=== PATIENT | female | born 1935 | race Caucasian/White ===

== ENCOUNTER 2017-12-06 17:08 | Inpatient (IN) | payer MEDICARE ==
[~2017-12-06] VITALS: Ht 147.3 cm; Wt 69.9 kg
--- NOTE | ~2017-12-06 | CON ---
[place], [place] REPORT OF CONSULTATION NAME: JAGDEEP HOUGH [facility] #: [id number] UNIT #: [id number] ROOM: 419 DOCTOR: VERONIKA BRIONES MD BIRTHDATE: [birth year] DOS: 12/07/2017 REASON FOR CONSULTATION: Chest pain. HISTORY OF PRESENT ILLNESS: The patient is an 82-year-old woman who denies any previous history of heart disease. She does have risk factors of hypertension, hyperlipidemia and previous cigarette use. She is very sedentary and rarely leaves her home. For the last day and a half, she has noticed that she has pain in her left anterior chest. She states that it occurs anytime she takes a deep breath. She denies cough or dyspnea, but the pain has been persistent. She denies any previous injuries. When the pain persisted, she came to the Emergency Room. Her electrocardiograms show evidence for previous inferior and anterior myocardial infarctions, even though she has no history of this. She has no acute ST or T-wave changes. Serial cardiac troponin levels have been negative despite the fact that she has had pain over 36 hours. PAST MEDICAL HISTORY: Includes: 1. Essential hypertension. 2. Hyperlipidemia. 3. History of former cigarette abuse. 4. Gastroesophageal reflux disease with persistent burping. 5. Status post appendectomy, back surgery and total knee replacement on the right. REVIEW OF SYSTEMS: The patient denies diplopia or loss of vision. She denies focal weakness. She denies lightheadedness or syncope. She denies orthopnea or PND. She denies fevers, chills, sweats or recent weight change. She denies nausea or vomiting. She denies change in bowel or bladder habits. She denies any blood in her stools or urine. She denies any hemoptysis or hematemesis. She denies any skin rashes. She states that her legs are chronically swollen and denies any new pains in her legs. She denies any skin rashes. Remainder of the review of systems is negative except as noted above. FAMILY HISTORY: The patient's mother of a heart attack at age 71. Her father of lung disease at age 80. CURRENT MEDICATIONS: Include: Atorvastatin 20 mg daily, Cymbalta 60 mg daily, gabapentin 300 mg b.i.d., losartan 100 mg per day, omeprazole 20 mg per day, and tramadol 50 mg b.i.d. ALLERGIES: She lists allergies to MORPHINE and CODEINE. SOCIAL HISTORY: The patient lives alone. She does not leave her house except to get the mail. She is very sedentary within her home. PHYSICAL EXAMINATION: GENERAL: The patient is an elderly white female who is awake, alert and oriented. VITAL SIGNS: Pulse is 60 and regular, blood pressure is 116/76. She is afebrile. She weighs 69.8 kg and has a body mass index of 32.2. [place], [place] REPORT OF CONSULTATION NAME: JAGDEEP HOUGH UNIT #: [id number] ROOM: 419 DOCTOR: VERONIKA BRIONES MD BIRTHDATE: [birth year] HEENT: Normocephalic and atraumatic. Extraocular muscles are intact. Sclerae are clear. Pupils equal, round and react to light. The oral mucosa is moist. Tongue is midline. NECK: Supple. She has no jugular distention. Carotids are full. I heard no bruits. She had no neck or supraclavicular masses and no thyromegaly. LUNGS: Respirations are unlabored. Her chest is clear to auscultation and percussion. She has no presacral edema. Her left anterior chest is tender to palpation, but this does not completely reproduce her symptoms. She states that her chest hurts much more if she takes a deep breath. There are no rubs. CARDIOVASCULAR: Her heart has a regular rhythm with an S4 gallop, but no S3. She has grade 2/6 holosystolic murmur at the apex. There is no diastolic murmur. ABDOMEN: Soft and normally active without masses, organomegaly or bruits. EXTREMITIES: Showed 1+ laterally. She does have a palpable cord in her right calf. Her left calf is tender, but I do not feel any specific cords. She has no Homans sign. Peripheral pulses are palpable in the feet. LABORATORY DATA: I reviewed her electrocardiogram that shows sinus rhythm. There is evidence for previous inferior and anterior wall myocardial infarction, but no acute ST changes. Hemoglobin is 12.7, white count 6200, platelet count 166,000. D-dimer is elevated at 0.61. Chest x-ray showed a possible small infrahilar interstitial infiltrate on the right. However, a CAT scan without contrast showed no evidence for infiltration or consolidation. IMPRESSION: 1. Pleuritic chest pain. The patient has had symptoms for over 36 hours. Despite this, she has no elevation in troponin and no ST or T-wave changes. It seems unlikely therefore that this is an acute coronary syndrome. 2. History of hypertension. 3. History of hyperlipidemia. 4. Remote history of cigarette abuse. 5. Swollen legs with a tender cord in her right calf. The patient does have a history of a sedentary lifestyle. PLAN: When the patient's D-dimer was positive, I put her on a low-dose heparin protocol. This morning, her symptoms have improved, but are still present. We will be getting a venous ultrasound of the lower extremities to document whether or not she had a lower extremity DVT. We will also be getting a CT angiogram of the chest to determine if she has pulmonary emboli. Further recommendations will depend upon the results of these examinations. [facility]iology and I thank the hospitalist physicians for asking our advice regarding the patient's care. [place], [place] REPORT OF CONSULTATION NAME: JAGDEEP HOUGH UNIT #: [id number] ROOM: 419 DOCTOR: VERONIKA BRIONES MD BIRTHDATE: [birth year] VERONIKA BRIONES MD CM:CONSTR:REPORT OF CONSULTATION [id number] 12/07/17 1856 interface
--- NOTE | ~2017-12-06 | PR ---
[place], [place] PROGRESS NOTE NAME: JAGDEEP HOUGH [facility] #: [id number] UNIT #: [id number] ROOM: 419 DOCTOR: VERONIKA BRIONES MD BIRTHDATE: [birth year] DOS: 12/08/2017 CARDIOLOGY PROGRESS NOTE SUBJECTIVE: The patient was seen today, 12/08/2017 at her bedside with her sister in attendance. She is feeling better and anxious for discharge. She still does have some pain in her left anterior chest, which hurts more when she takes a deep breath or when she palpates the area. Her cardiac evaluation has been unremarkable and the CT angiogram of her chest showed no evidence for pulmonary emboli. In addition, she did have a venous ultrasound of her legs, which showed no DVT. PHYSICAL EXAMINATION: VITAL SIGNS: Today, her pulse is 64 and regular, blood pressure is 150/80. She is afebrile and weighs 69.8 kilograms with a body mass index of 32.2. HEENT: Normocephalic, atraumatic. Extraocular muscles are intact. Sclerae are clear. Pupils are equal, round and react to light. NECK: Supple. She has no jugular distention. Carotids are full. LUNGS: Respirations are unlabored. Her chest is clear. She does have pain when she takes a deep breath. She has no wheezes or rales and no presacral edema. Palpation of her left anterior chest reproduces her pain. ABDOMEN: Soft and normally active. HEART: Has a regular rhythm with an S4 gallop, but no S3 or murmur and no rub. EXTREMITIES: Showed 1+ edema bilaterally. DIAGNOSTIC DATA: An echocardiogram done yesterday showed normal left ventricular size, wall thickness, regional wall motion and systolic function with stage 1 diastolic dysfunction that is normal in this age group. She had aortic sclerosis, but no stenosis or other valve abnormalities. IMPRESSION: 1. Pleuritic chest pain with no evidence for an acute coronary syndrome. She is tender to palpation with reproducible symptoms and therefore it is most likely that this is a musculoskeletal injury. 2. History of hypertension. 3. History of hyperlipidemia. 4. Remote history of cigarette abuse. 5. Chronic dependent edema. PLAN: No other cardiac workup is planned at this time. Symptomatic therapy is all that is indicated from our perspective along with routine risk factor modification. Cardiology will sign off, but we will remain available to see her in the future if needed and we thank the hospitalist physicians for asking our advice regarding her care. [place], [place] PROGRESS NOTE NAME: JAGDEEP HOUGH UNIT #: [id number] ROOM: 419 DOCTOR: VERONIKA BRIONES MD BIRTHDATE: [birth year] VERONIKA BRIONES MD CM:PNTRANS [id number] VERONIKA BRIONES MD 12/08/17 1534 interface
[~2017-12-06 17:08] MED LIST: COZAAR100 MG PO; LIPITOR20 MG PO; NEURONTIN300 MG PO; TRAMADOL50 MG PO
[2017-12-06 17:19] VITALS: BP 111/77
[2017-12-06 17:41] LABS: BASO # 0.1 10*3/uL (0.0-0.1); BASO % 0.7 % (0.0-1.0); EOS # 0.2 10*3/uL (0.0-0.4); EOS % 3.1 % (1.0-4.0); HEMATOCRIT 40.2 % (37.0-47.0); HEMOGLOBIN 13.1 g/dl (12.0-16.0); LYMPH # 2.7 10*3/uL (1.3-4.4); MEAN CELL VOLUME 93.7 fl (81.0-99.0); MEAN CORPUSCULAR HGB 30.5 pg (27.0-31.0); MEAN CORPUSCULAR HGB CONC 32.6 g/dl (33.0-37.0); MEAN PLATELET VOLUME 9.7 fl (9.6-12.3); MONO # 0.6 10*3/uL (0.1-1.0); MONO % 8.1 % (3.0-9.0); NEUT # 3.3 10*3/uL (2.3-7.9); PLATELET COUNT AUTOMATED 197 10*3/uL (130-400); RED BLOOD COUNT 4.29 10*6/uL (4.10-5.10); RED CELL DISTRI WIDTH 14.4 % (0-14.5); WHITE BLOOD COUNT 6.8 10*3/uL (4.8-10.8)
[2017-12-06 17:45] VITALS: BP 110/73
[2017-12-06 18:02] LABS: ALBUMIN 3.7 gm/dl (3.1-4.5); ALKALINE PHOSPHATASE 60 U/L (45-117); BUN 24 mg/dl (7-24); CHLORIDE 107 mmol/L (98-107); CREATININE 1.24 mg/dL (0.55-1.02); POTASSIUM 4.2 mmol/L (3.5-5.1); SGOT/AST 23 IU/L (3-35); SGPT/ALT 20 U/L (12-78); SODIUM 141 mmol/L (136-145); TOTAL PROTEIN 6.9 gm/dL (6.4-8.2)
[2017-12-06 18:07] LABS: TROPONIN I < 0.015 ng/ml (<0.045)
[2017-12-06 18:08] LABS: ACT PARTIAL THROMBO TIME 28.3 SECONDS (20.8-31.5)
[2017-12-06 18:35] VITALS: BP 104/64
[2017-12-06 19:28] VITALS: BP 110/68
[2017-12-06 20:00] VITALS: BP 150/59
[2017-12-06 20:25] VITALS: BP 150/59
[2017-12-06] MEDS ORDERED: OMEPRAZOLE20 M2 PO (20:54)
[2017-12-06] MEDS ORDERED: CYMBALTA60 MG PO (20:57)
[2017-12-07 00:12] VITALS: BP 116/76
[2017-12-07 08:00] VITALS: BP 132/59
[2017-12-07 08:24] LABS: BASO # 0.1 10*3/uL (0.0-0.1); BASO % 0.8 % (0.0-1.0); EOS # 0.2 10*3/uL (0.0-0.4); EOS % 3.7 % (1.0-4.0); HEMATOCRIT 40.4 % (37.0-47.0); HEMOGLOBIN 12.7 g/dl (12.0-16.0); LYMPH # 2.5 10*3/uL (1.3-4.4); LYMPH % 39.8 % (27.0-41.0); MEAN CORPUSCULAR HGB 30.2 pg (27.0-31.0); MEAN CORPUSCULAR HGB CONC 31.4 g/dl (33.0-37.0); MEAN PLATELET VOLUME 10.2 fl (9.6-12.3); MONO # 0.5 10*3/uL (0.1-1.0); MONO % 7.6 % (3.0-9.0); NEUT % 47.9 % (47.0-73.0); PLATELET COUNT AUTOMATED 166 10*3/uL (130-400); RED BLOOD COUNT 4.21 10*6/uL (4.10-5.10); RED CELL DISTRI WIDTH 14.5 % (0-14.5); WHITE BLOOD COUNT 6.2 10*3/uL (4.8-10.8)
[2017-12-07 08:38] LABS: CREATININE 1.12 mg/dL (0.55-1.02); FREE T4 1.05 ng/dl (0.76-1.46); PHOSPHOROUS 3.8 mg/dL (2.5-4.9); POTASSIUM 3.7 mmol/L (3.5-5.1)
[2017-12-07 08:44] LABS: THYROID STIM HORMONE (HS) 4.09 uIU/ml (0.358-4.75)
[2017-12-07 10:07] LABS: VITAMIN D, 25-HYDROXY 27.6 ng/mL (30-100)
[2017-12-07 12:00] VITALS: BP 155/59
[2017-12-07 16:04] VITALS: BP 122/89
[2017-12-07 20:00] VITALS: BP 144/62
[2017-12-08] VITALS: BP 145/60
[2017-12-08 07:08] LABS: BUN 24 mg/dl (7-24); CHLORIDE 105 mmol/L (98-107); CREATININE 1.03 mg/dL (0.55-1.02); SODIUM 137 mmol/L (136-145)
[2017-12-08 08:00] VITALS: BP 151/62
[2017-12-08] MEDS ORDERED: VITAMIN D-32000 UNIT PO (11:02)
[2017-12-08 12:00] VITALS: BP 150/80
== END 2017-12-08 13:54 | disposition home health service (06) | DRG 194 ==
LOC: ED 17:08 → EDHOLD 18:12 → 4E 18:12
PROVIDERS: Emergency Medicine; Internal Medicine; Internal Medicine Cardiovascular Disease
DX: R09.1 Pleurisy (principal); E44.0 Moderate protein-calorie malnutrition; F03.90 Unspecified dementia, unspecified severity, without behavioral disturbance, psychotic disturbance, mood disturbance, and anxiety; N18.3 Chronic kidney disease, stage 3 (moderate); E83.41 Hypermagnesemia; I12.9 Hypertensive chronic kidney disease with stage 1 through stage 4 chronic kidney disease, or unspecified chronic kidney disease; E78.2 Mixed hyperlipidemia; K21.9 Gastro-esophageal reflux disease without esophagitis; Z96.659 Presence of unspecified artificial knee joint; Z60.2 Problems related to living alone; K44.9 Diaphragmatic hernia without obstruction or gangrene; K80.20 Calculus of gallbladder without cholecystitis without obstruction; Z87.891 Personal history of nicotine dependence; Z82.49 Family history of ischemic heart disease and other diseases of the circulatory system; Z88.6 Allergy status to analgesic agent; Z79.899 Other long term (current) drug therapy; Z90.89 Acquired absence of other organs; Z90.710 Acquired absence of both cervix and uterus; Z90.49 Acquired absence of other specified parts of digestive tract; Z83.3 Family history of diabetes mellitus; Z83.6 Family history of other diseases of the respiratory system; Z68.32 Body mass index [BMI] 32.0-32.9, adult

== ENCOUNTER 2018-04-05 12:33 | Inpatient (IN) | payer MEDICARE ==
[~2018-04-05] VITALS: Ht 147.3 cm; Wt 63.2 kg
[2018-04-05] VITALS (8 sets, daily range): BP systolic 120–220; BP diastolic 65–112
--- NOTE | ~2018-04-05 | EKG ---
[place], [place] ELECTROCARDIOGRAM REPORT NAME: JAGDEEP HOUGH UNIT #: [id number] ROOM: 507 DOCTOR: LISANDRO DRAFT REPORT BIRTHDATE: [birth year] [facility] Test Date: 2018-04-05 Test Time: 22:08:57 Pat Name: JAGDEEP HOUGH Department: Room: [facility] 2 Gender: F Television News Anchor: CASSIA : 1935 Requested By: TONA WILKS Order Number: [id number] Reading MD: Chris Yusuf MD Measurements Intervals [place] Rate: 90 P: 21 NC: 157 QRS: -35 QRSD: 72 T: -8 QT: 360 QTc: 441 Interpretive Statements Sinus rhythm Atrial premature complex Left axis deviation Probable anteroseptal infarct, old Borderline T abnormalities, inferior leads N Electronically Signed On 04-09-2018 8:40:59 PDT by Chris Yusuf MD CM:EKGRPT:ELECTROCARDIOGRAM REPORT 07 [id number] TONA WHYTE DRAFT REPORT OTNA WILKS DO
--- NOTE | ~2018-04-05 | EKG ---
[place], [place] ELECTROCARDIOGRAM REPORT NAME: JAGDEEP HOUGH UNIT #: [id number] ROOM: 507 DOCTOR: LISANDRO DRAFT REPORT BIRTHDATE: [birth year] [facility] Test Date: 2018-04-06 Test Time: 01:04:09 Pat Name: JAGDEEP HOUGH Department: Room: [facility] 2 Gender: F Signal Operator: : 1935 Requested By: TONA WILKS Order Number: [id number] Reading MD: Jaskaran Ayoub MD Measurements Intervals [place] Rate: 90 P: 30 PA: 157 QRS: -34 QRSD: 73 T: 10 QT: 375 QTc: 459 Interpretive Statements Sinus rhythm Atrial premature complex Left axis deviation Anterior infarct, old Inferior infarct, old No old tracing for comparison Electronically Signed On 04-06-2018 10:53:03 PDT by Jaskaran Ayoub MD CM:EKGRPT:ELECTROCARDIOGRAM REPORT [id number] 1053 TONA WHYTE DRAFT REPORT TONA WILKS DO
--- NOTE | ~2018-04-05 | EKG ---
[place], [place] ELECTROCARDIOGRAM REPORT NAME: JAGDEEP HOUGH UNIT #: [id number] ROOM: 507 DOCTOR: LISANDRO DRAFT REPORT BIRTHDATE: [birth year] [facility] Test Date: 2018-04-05 Test Time: 12:52:29 Pat Name: JAGDEEP HOUGH Department: Room: 507 Gender: F Database Administration Manager: Molly Hurst : 1935 Requested By: NATALIA MERINO Order Number: [id number] Reading MD: Chris Yusuf MD Measurements Intervals [place] Rate: 103 P: 62 DE: 153 QRS: -22 QRSD: 76 T: 27 QT: 346 QTc: 453 Interpretive Statements Sinus tachycardia Probable left atrial enlargement Borderline left axis deviation Anterior infarct, old Electronically Signed On 04-09-2018 8:38:44 PDT by Chris Yusuf MD CM:EKGRPT:ELECTROCARDIOGRAM REPORT [id number] NATALIA MCMAHON DRAFT REPORT NATALIA MERINO M.D.
[~2018-04-05 12:33] MED LIST changes: +CYMBALTA60 MG PO; +NORCO 5-325 TA1 EACH PO; +OMEPRAZOLE20 M2 PO; +VITAMIN D-32000 UNIT PO
[2018-04-05] MEDS ORDERED: TRAMADOL HCL50 MG PO (12:39)
[2018-04-05 14:13] LABS: BASO % 0.4 % (0.0-1.0); HEMATOCRIT 41.8 % (37.0-47.0); HEMOGLOBIN 14.3 g/dl (12.0-16.0); LYMPH # 1.1 10*3/uL (1.3-4.4); MEAN CELL VOLUME 93.3 fl (81.0-99.0); MEAN CORPUSCULAR HGB 31.9 pg (27.0-31.0); MEAN CORPUSCULAR HGB CONC 34.2 g/dl (33.0-37.0); MEAN PLATELET VOLUME 9.5 fl (9.6-12.3); MONO # 0.6 10*3/uL (0.1-1.0); MONO % 7.7 % (3.0-9.0); NEUT # 6.3 10*3/uL (2.3-7.9); NEUT % 77.4 % (47.0-73.0); PLATELET COUNT AUTOMATED 225 10*3/uL (130-400); RED BLOOD COUNT 4.48 10*6/uL (4.10-5.10); RED CELL DISTRI WIDTH 14.4 % (0-14.5); WHITE BLOOD COUNT 8.1 10*3/uL (4.8-10.8)
[2018-04-05 14:32] LABS: ALBUMIN 3.7 gm/dl (3.1-4.5); CREATININE 1.21 mg/dL (0.55-1.02); POTASSIUM 3.9 mmol/L (3.5-5.1); TOTAL PROTEIN 6.8 gm/dL (6.4-8.2)
[2018-04-05 14:33] LABS: ACT PARTIAL THROMBO TIME 25.1 SECONDS (20.8-31.5); TROPONIN I 0.029 ng/ml (<0.045)
[2018-04-05 14:50] LABS: BILIRUBIN 2+ (NEGATIVE); BLOOD NEGATIVE (NEGATIVE); CLARITY SL CLOUDY (CLEAR); COLOR YELLOW (YELLOW); GLUCOSE TRACE (NEGATIVE); KETONE 1+ (NEGATIVE); LEUKO ESTERASE NEGATIVE (NEGATIVE); NITRITE NEGATIVE (NEGATIVE); SPECIFIC GRAVITY >= 1.030 (1.005-1.030)
[2018-04-05 14:56] LABS: BACTERIA 1+; HYALINE CAST 41-50; MUCOUS 1+
[2018-04-05 16:44] LABS: ALBUMIN 3.4 gm/dl (3.1-4.5); ALKALINE PHOSPHATASE 58 U/L (45-117); BUN 15 mg/dl (7-24); CHLORIDE 109 mmol/L (98-107); CREATININE 0.96 mg/dL (0.55-1.02); SGOT/AST 20 IU/L (3-35); SGPT/ALT 14 U/L (12-78); SODIUM 144 mmol/L (136-145); TOTAL PROTEIN 6.3 gm/dL (6.4-8.2)
[2018-04-05] MEDS ORDERED: COZAAR25 M1 PO (21:13)
[2018-04-05] MEDS ORDERED: DONEPEZIL HCL10 MG PO (21:14)
[2018-04-06] VITALS: BP 156/84
[2018-04-06 04:00] VITALS: BP 142/78
[2018-04-06 06:46] LABS: ALBUMIN 3.4 gm/dl (3.1-4.5); ALKALINE PHOSPHATASE 56 U/L (45-117); BUN 15 mg/dl (7-24); CHLORIDE 109 mmol/L (98-107); CHOLESTEROL 155 mg/dL (<200); CREATININE 0.92 mg/dL (0.55-1.02); HDL CHOLESTEROL 74 mg/dl (40-60); LDL CHOLESTEROL 67 mg/dL (9-159); PHOSPHOROUS 3.4 mg/dL (2.5-4.9); POTASSIUM 3.7 mmol/L (3.5-5.1); SGOT/AST 20 IU/L (3-35); SGPT/ALT 14 U/L (12-78); SODIUM 141 mmol/L (136-145); TOTAL PROTEIN 6.1 gm/dL (6.4-8.2); TRIGLYCERIDES 69 mg/dl (<150); VLDL CHOLESTEROL 14 mg/dL (6-40)
[2018-04-06 06:48] LABS: BASO % 0.2 % (0.0-1.0); HEMATOCRIT 37.9 % (37.0-47.0); HEMOGLOBIN 12.9 g/dl (12.0-16.0); LYMPH # 0.8 10*3/uL (1.3-4.4); LYMPH % 13.5 % (27.0-41.0); MEAN CELL VOLUME 93.1 fl (81.0-99.0); MEAN CORPUSCULAR HGB 31.7 pg (27.0-31.0); MEAN PLATELET VOLUME 9.7 fl (9.6-12.3); MONO # 0.1 10*3/uL (0.1-1.0); MONO % 1.4 % (3.0-9.0); NEUT # 4.7 10*3/uL (2.3-7.9); NEUT % 84.5 % (47.0-73.0); PLATELET COUNT AUTOMATED 199 10*3/uL (130-400); RED BLOOD COUNT 4.07 10*6/uL (4.10-5.10); RED CELL DISTRI WIDTH 14.6 % (0-14.5); WHITE BLOOD COUNT 5.6 10*3/uL (4.8-10.8)
[2018-04-06 06:53] LABS: THYROID STIM HORMONE (HS) 0.759 uIU/ml (0.358-4.75)
[2018-04-06 07:46] LABS: VITAMIN D, 25-HYDROXY 37.6 ng/mL (30-100)
[2018-04-06 08:00] VITALS: BP 152/84
[2018-04-06 12:00] VITALS: BP 133/91
[2018-04-06 16:00] VITALS: BP 152/85
[2018-04-06 20:00] VITALS: BP 127/61
[2018-04-07] VITALS: BP 123/66
[2018-04-07 08:00] VITALS: BP 139/53
[2018-04-07 12:00] VITALS: BP 124/51
[2018-04-07 16:00] VITALS: BP 131/55
[2018-04-07 20:00] VITALS: BP 151/55
[2018-04-08] VITALS: BP 137/56
[2018-04-08 07:54] LABS: BASO % 0.1 % (0.0-1.0); HEMATOCRIT 35.9 % (37.0-47.0); HEMOGLOBIN 11.9 g/dl (12.0-16.0); LYMPH % 10.1 % (27.0-41.0); MEAN CELL VOLUME 96.2 fl (81.0-99.0); MEAN CORPUSCULAR HGB 31.9 pg (27.0-31.0); MEAN CORPUSCULAR HGB CONC 33.1 g/dl (33.0-37.0); MEAN PLATELET VOLUME 10.1 fl (9.6-12.3); MONO # 0.5 10*3/uL (0.1-1.0); MONO % 5.1 % (3.0-9.0); NEUT # 8.6 10*3/uL (2.3-7.9); NEUT % 83.9 % (47.0-73.0); PLATELET COUNT AUTOMATED 173 10*3/uL (130-400); RED BLOOD COUNT 3.73 10*6/uL (4.10-5.10); RED CELL DISTRI WIDTH 15.1 % (0-14.5); WHITE BLOOD COUNT 10.2 10*3/uL (4.8-10.8)
[2018-04-08 08:00] VITALS: BP 154/66
[2018-04-08 08:08] LABS: BUN 24 mg/dl (7-24); CHLORIDE 109 mmol/L (98-107); CREATININE 1.01 mg/dL (0.55-1.02); POTASSIUM 3.8 mmol/L (3.5-5.1); SODIUM 143 mmol/L (136-145)
[2018-04-08 12:00] VITALS: BP 134/82
[2018-04-08 16:00] VITALS: BP 104/60
[2018-04-08 20:00] VITALS: BP 133/52
[2018-04-09] VITALS: BP 153/68
[2018-04-09 06:34] LABS: HEMATOCRIT 34.1 % (37.0-47.0); HEMOGLOBIN 11.2 g/dl (12.0-16.0); LYMPH # 0.5 10*3/uL (1.3-4.4); LYMPH % 6.8 % (27.0-41.0); MEAN CELL VOLUME 97.2 fl (81.0-99.0); MEAN CORPUSCULAR HGB 31.9 pg (27.0-31.0); MEAN CORPUSCULAR HGB CONC 32.8 g/dl (33.0-37.0); MEAN PLATELET VOLUME 10.6 fl (9.6-12.3); MONO # 0.4 10*3/uL (0.1-1.0); MONO % 4.6 % (3.0-9.0); NEUT # 6.6 10*3/uL (2.3-7.9); NEUT % 87.7 % (47.0-73.0); NUCLEATED RED BLOOD CELL 0.3 % (0.0-0.0); PLATELET COUNT AUTOMATED 160 10*3/uL (130-400); RED BLOOD COUNT 3.51 10*6/uL (4.10-5.10); RED CELL DISTRI WIDTH 15.2 % (0-14.5); WHITE BLOOD COUNT 7.6 10*3/uL (4.8-10.8)
[2018-04-09 07:12] LABS: ALBUMIN 3.1 gm/dl (3.1-4.5); ALKALINE PHOSPHATASE 68 U/L (45-117); BUN 28 mg/dl (7-24); CHLORIDE 108 mmol/L (98-107); CREATININE 1.04 mg/dL (0.55-1.02); POTASSIUM 3.8 mmol/L (3.5-5.1); SGOT/AST 19 IU/L (3-35); SGPT/ALT 18 U/L (12-78); SODIUM 141 mmol/L (136-145); TOTAL PROTEIN 5.5 gm/dL (6.4-8.2)
[2018-04-09 08:00] VITALS: BP 164/82
[2018-04-09 12:00] VITALS: BP 146/67
[2018-04-09] MEDS ORDERED: ZITHROMAX250 MG PO (14:36)
[2018-04-09] MEDS ORDERED: PREDNISONE10 MG PO (14:36)
== END 2018-04-09 17:34 | disposition other institution (70) | DRG 871 ==
LOC: ED 12:33 → 5E 18:30 → EDHOLD 18:30 → 5E 18:51
PROVIDERS: Internal Medicine; Nurse Practitioner; Student in an Organized Health Care Education/Training Program
DX: A41.9 Sepsis, unspecified organism (principal); J18.9 Pneumonia, unspecified organism; E44.1 Mild protein-calorie malnutrition; I16.1 Hypertensive emergency; N18.3 Chronic kidney disease, stage 3 (moderate); R65.20 Severe sepsis without septic shock; I12.9 Hypertensive chronic kidney disease with stage 1 through stage 4 chronic kidney disease, or unspecified chronic kidney disease; E78.2 Mixed hyperlipidemia; K21.9 Gastro-esophageal reflux disease without esophagitis; K29.50 Unspecified chronic gastritis without bleeding; F03.90 Unspecified dementia, unspecified severity, without behavioral disturbance, psychotic disturbance, mood disturbance, and anxiety; R29.6 Repeated falls; Z96.659 Presence of unspecified artificial knee joint; E55.9 Vitamin D deficiency, unspecified; Z88.6 Allergy status to analgesic agent; Z79.899 Other long term (current) drug therapy; Z90.89 Acquired absence of other organs; Z90.49 Acquired absence of other specified parts of digestive tract; S62.102D Fracture of unspecified carpal bone, left wrist, subsequent encounter for fracture with routine healing; Z90.710 Acquired absence of both cervix and uterus; Z82.49 Family history of ischemic heart disease and other diseases of the circulatory system; Z83.3 Family history of diabetes mellitus; Z87.891 Personal history of nicotine dependence; Z83.6 Family history of other diseases of the respiratory system; Z68.29 Body mass index [BMI] 29.0-29.9, adult

== ENCOUNTER 2018-10-01 16:28 | Emergency (ER) | payer MEDICARE ==
[~2018-10-01] VITALS: Ht 147.3 cm; Wt 63.5 kg
[~2018-10-01 16:28] MED LIST changes: +COZAAR25 M1 PO; +DONEPEZIL HCL10 MG PO; +PREDNISONE10 MG PO; +TRAMADOL HCL50 MG PO; +ZITHROMAX250 MG PO
== END 2018-10-01 18:05 | disposition home or self-care (01) ==
LOC: ED 16:28
DX: R05 Cough (principal); R09.89 Other specified symptoms and signs involving the circulatory and respiratory systems; Z88.5 Allergy status to narcotic agent; Z79.899 Other long term (current) drug therapy; Z87.891 Personal history of nicotine dependence; Z90.710 Acquired absence of both cervix and uterus; Z90.49 Acquired absence of other specified parts of digestive tract

== ENCOUNTER 2019-05-10 20:12 | Emergency (ER) | payer MEDICARE ==
[~2019-05-10] VITALS: Ht 170.1 cm; Wt 76.7 kg
[2019-05-10 20:47] LABS: BASO # 0.1 10*3/uL (0.0-0.1); BASO % 0.6 % (0.0-1.0); EOS # 0.4 10*3/uL (0.0-0.4); EOS % 4.7 % (1.0-4.0); HEMATOCRIT 38.4 % (37.0-47.0); HEMOGLOBIN 12.2 g/dl (12.0-16.0); LYMPH # 2.1 10*3/uL (1.3-4.4); LYMPH % 25.9 % (27.0-41.0); MEAN CELL VOLUME 96.2 fl (81.0-99.0); MEAN CORPUSCULAR HGB 30.6 pg (27.0-31.0); MEAN CORPUSCULAR HGB CONC 31.8 g/dl (33.0-37.0); MEAN PLATELET VOLUME 9.6 fl (9.6-12.3); MONO # 0.6 10*3/uL (0.1-1.0); MONO % 7.7 % (3.0-9.0); NEUT % 60.4 % (47.0-73.0); PLATELET COUNT AUTOMATED 223 10*3/uL (130-400); RED BLOOD COUNT 3.99 10*6/uL (4.10-5.10); RED CELL DISTRI WIDTH 14.6 % (0-14.5); WHITE BLOOD COUNT 8.2 10*3/uL (4.8-10.8)
[2019-05-10 21:01] LABS: ALBUMIN 3.3 gm/dl (3.1-4.5); CREATININE 1.29 mg/dL (0.55-1.02); POTASSIUM 4.6 mmol/L (3.5-5.1); TOTAL PROTEIN 6.9 gm/dL (6.4-8.2)
[2019-05-10 21:19] LABS: BILIRUBIN NEGATIVE (NEGATIVE); BLOOD NEGATIVE (NEGATIVE); CLARITY SL CLOUDY (CLEAR); COLOR YELLOW (YELLOW); GLUCOSE NEGATIVE (NEGATIVE); KETONE NEGATIVE (NEGATIVE); LEUKO ESTERASE NEGATIVE (NEGATIVE); NITRITE NEGATIVE (NEGATIVE); SPECIFIC GRAVITY 1.025 (1.005-1.030); UROBILINOGEN 0.2 E.U./dl (0.2-1.0)
[2019-05-10 21:25] LABS: BACTERIA TRACE; HYALINE CAST 0-2; WBC 0-2 wbc/hpf (0-5)
== END 2019-05-10 23:40 ==
LOC: ED 20:12
PROVIDERS: Emergency Medicine Emergency Medical Services
DX: S80.812A Abrasion, left lower leg, initial encounter (principal); S80.811A Abrasion, right lower leg, initial encounter; R51 Headache; M54.2 Cervicalgia; I12.9 Hypertensive chronic kidney disease with stage 1 through stage 4 chronic kidney disease, or unspecified chronic kidney disease; N18.3 Chronic kidney disease, stage 3 (moderate); K21.9 Gastro-esophageal reflux disease without esophagitis; E78.2 Mixed hyperlipidemia; K44.9 Diaphragmatic hernia without obstruction or gangrene; R60.0 Localized edema; M19.90 Unspecified osteoarthritis, unspecified site; Z88.6 Allergy status to analgesic agent; Z91.040 Latex allergy status; Z87.891 Personal history of nicotine dependence; W19.XXXA Unspecified fall, initial encounter; Y93.89 Activity, other specified; Y92.531 Health care provider office as the place of occurrence of the external cause; Y99.8 Other external cause status

== ENCOUNTER 2019-05-26 14:22 | Emergency (ER) | payer MEDICARE ==
[~2019-05-26] VITALS: Ht 160 cm; Wt 63.5 kg
[2019-05-26 16:07] LABS: BASO % 0.5 % (0.0-1.0); EOS # 0.2 10*3/uL (0.0-0.4); EOS % 3.1 % (1.0-4.0); HEMATOCRIT 34.7 % (37.0-47.0); HEMOGLOBIN 10.8 g/dl (12.0-16.0); LYMPH # 1.2 10*3/uL (1.3-4.4); LYMPH % 20.1 % (27.0-41.0); MEAN CELL VOLUME 96.9 fl (81.0-99.0); MEAN CORPUSCULAR HGB 30.2 pg (27.0-31.0); MEAN CORPUSCULAR HGB CONC 31.1 g/dl (33.0-37.0); MEAN PLATELET VOLUME 9.2 fl (9.6-12.3); MONO # 0.7 10*3/uL (0.1-1.0); MONO % 11.4 % (3.0-9.0); NEUT # 3.7 10*3/uL (2.3-7.9); NEUT % 64.4 % (47.0-73.0); PLATELET COUNT AUTOMATED 232 10*3/uL (130-400); RED BLOOD COUNT 3.58 10*6/uL (4.10-5.10); RED CELL DISTRI WIDTH 15.1 % (0-14.5); WHITE BLOOD COUNT 5.7 10*3/uL (4.8-10.8)
[2019-05-26 16:18] LABS: INTERNATIONAL NORM RATIO 0.9 (2.0-3.5)
[2019-05-26 16:37] LABS: ALBUMIN 3.2 gm/dl (3.1-4.5); ALKALINE PHOSPHATASE 80 U/L (45-117); BUN 39 mg/dl (7-24); CHLORIDE 108 mmol/L (98-107); CREATININE 1.37 mg/dL (0.55-1.02); LIPASE 65 U/L (73-393); SGOT/AST 25 IU/L (3-35); SGPT/ALT 23 U/L (12-78); SODIUM 143 mmol/L (136-145); TOTAL PROTEIN 6.6 gm/dL (6.4-8.2)
[2019-05-26 16:38] LABS: TROPONIN I < 0.015 ng/ml (<0.045)
[2019-05-26 17:33] LABS: BILIRUBIN NEGATIVE (NEGATIVE); BLOOD NEGATIVE (NEGATIVE); CLARITY CLEAR (CLEAR); COLOR YELLOW (YELLOW); GLUCOSE NEGATIVE (NEGATIVE); KETONE NEGATIVE (NEGATIVE); LEUKO ESTERASE NEGATIVE (NEGATIVE); NITRITE NEGATIVE (NEGATIVE); UROBILINOGEN 0.2 E.U./dl (0.2-1.0)
[2019-05-26 17:52] LABS: BACTERIA TRACE
== END 2019-05-26 18:15 | disposition other institution (70) ==
LOC: ED 14:22
PROVIDERS: Nurse Practitioner Family
DX: S29.012A Strain of muscle and tendon of back wall of thorax, initial encounter (principal); S80.02XA Contusion of left knee, initial encounter; M25.552 Pain in left hip; L97.229 Non-pressure chronic ulcer of left calf with unspecified severity; I10 Essential (primary) hypertension; M19.90 Unspecified osteoarthritis, unspecified site; F03.90 Unspecified dementia, unspecified severity, without behavioral disturbance, psychotic disturbance, mood disturbance, and anxiety; Z88.6 Allergy status to analgesic agent; Z91.040 Latex allergy status; Z79.899 Other long term (current) drug therapy; Z87.891 Personal history of nicotine dependence; W18.39XA Other fall on same level, initial encounter; Y93.89 Activity, other specified; Y92.128 Other place in nursing home as the place of occurrence of the external cause; Y99.8 Other external cause status

== ENCOUNTER 2020-01-27 14:17 | Inpatient (IN) | payer MEDICARE ==
[~2020-01-27] VITALS: Ht 152.4 cm; Wt 69.4 kg
[2020-01-27 14:25] VITALS: BP 192/82
[2020-01-27 15:29] LABS: BASO % 0.4 % (0.0-1.0); EOS # 0.1 10*3/uL (0.0-0.4); HEMATOCRIT 42.4 % (37.0-47.0); LYMPH # 1.5 10*3/uL (1.3-4.4); LYMPH % 16.9 % (27.0-41.0); MEAN CELL VOLUME 92.8 fl (81.0-99.0); MEAN CORPUSCULAR HGB 30.2 pg (27.0-31.0); MEAN CORPUSCULAR HGB CONC 32.5 g/dl (33.0-37.0); MONO # 0.7 10*3/uL (0.1-1.0); MONO % 7.8 % (3.0-9.0); NEUT # 6.5 10*3/uL (2.3-7.9); NEUT % 73.3 % (47.0-73.0); PLATELET COUNT AUTOMATED 293 10*3/uL (130-400); RED BLOOD COUNT 4.57 10*6/uL (4.10-5.10); RED CELL DISTRI WIDTH 13.5 % (0-14.5); WHITE BLOOD COUNT 8.9 10*3/uL (4.8-10.8)
[2020-01-27 15:45] LABS: ACT PARTIAL THROMBO TIME 26.6 SECONDS (20.0-32.1); ALKALINE PHOSPHATASE 65 U/L (45-117); BUN 17 mg/dl (7-24); CHLORIDE 111 mmol/L (98-107); CREATININE 0.88 mg/dL (0.55-1.02); LIPASE 17 U/L (73-393); POTASSIUM 3.4 mmol/L (3.5-5.1); SGOT/AST 14 IU/L (3-35); SGPT/ALT 12 U/L (12-78); SODIUM 140 mmol/L (136-145); TOTAL PROTEIN 6.8 gm/dL (6.4-8.2)
--- NOTE | 2020-01-27 18:06 | NUR ---
THIS RN HAS BEEN UNSUCCESSFUL WITH EKG AND URINE SAMPLE. WAITING FOR ANOTHER STAFF MEMBER TO ASSIST.
[2020-01-27 19:03] LABS: BILIRUBIN NEGATIVE (NEGATIVE); CLARITY CLOUDY (CLEAR); COLOR YELLOW (YELLOW); GLUCOSE NEGATIVE (NEGATIVE); KETONE NEGATIVE (NEGATIVE)
[2020-01-27 19:04] LABS: BLOOD 3+ (NEGATIVE); LEUKO ESTERASE 3+ (NEGATIVE); NITRITE POSITIVE (NEGATIVE); PH 6.5 (5.0-9.0); SPECIFIC GRAVITY 1.025 (1.005-1.030); UROBILINOGEN 0.2 E.U./dl (0.2-1.0)
[2020-01-27 19:15] LABS: RBC TNTC rbc/hpf (0-2)
[2020-01-27 19:16] VITALS: BP 186/82
[2020-01-27 19:16] LABS: BACTERIA 4+; EPITHELIAL CELLS 21-30; WBC TNTC wbc/hpf (0-5)
[2020-01-27 20:00] VITALS: BP 180/90
--- NOTE | 2020-01-27 20:00 | NUR ---
Time: 1999 A 84 year old FEMALE admitted to 5E under services of SANDRA CORRALES DO. Pt. arrived via stretcher from ER. Chief complaint: CHANGE IN MENTAL STATUS. AMBER LLOYD
[2020-01-27] MEDS ORDERED: LOSARTAN POTASS50 M1 PO (20:29)
--- NOTE | 2020-01-27 20:34 | NUR ---
MED REC UP TO DATE PER PATIENT'S DAUGHTER TIM.
--- NOTE | 2020-01-27 20:43 | NUR ---
IN ROOM TO SEE PT. DAUGHTER AT BEDSIDE TO ANSWER QUESTIONS PT IS NONVERBAL. MADE AWARE OF BP 180/90 MANUALLY AND THAT PT HAS ALREADY HAD LOSARTAN TODAY. ALSO MADE AWARE OF NO BM SINCE ROUGHLY 12/27/2019. MADE AWARE OF WOUND TO L HEEL.
--- NOTE | 2020-01-27 21:27 | NUR ---
IV LABETOLOL GIVEN SLOWLY PER ONE TIME ORDER FOR ELEVATED BP. WILL MONITOR EFFECTIVENESS.
[2020-01-27 22:30] VITALS: BP 128/58
--- NOTE | 2020-01-27 22:30 | NUR ---
EARLIER LABETOLOL EFFECTIVE. BP NOW 128/58 MANUALLY.
[2020-01-28] VITALS: BP 121/52
--- NOTE | 2020-01-28 | NUR ---
PT ASLEEP IN BED. NO S/S OF DISTRESS NOTED. IVF INFUSING PER ORDER. WILL MONITOR. CALL LIGHT IN REACH. BED ALARM INTACT.
--- NOTE | 2020-01-28 03:46 | NUR ---
PATIENT BRIEF CHANGED AND PT REPOSITIONED ON L SIDE FOR COMFORT. BRIEF WAS DRY, BUT LARGER SIZE PROVIDED. RN IN ROOM TO SEE PATIENT. RN ASKS IF SHE IS OKAY. PT REPLIES "YES" AND NODS HEAD. RN ASKS IF PT NEEDS ANYTHING. PT REPLIES "NO." WILL MONITOR. CALL LIGHT IN REACH. BED ALARM INTACT.
--- NOTE | 2020-01-28 05:30 | NUR ---
CRYSTAL IN TO SEE PATIENT. NEW DRESSING APPLIED. PT REPOSITIONED ON R SIDE USING WEDGE. PILLOWS PLACED BETWEEN KNEES TO PREVENT FRICTION/SHEARING. HEEL PROTECTORS REMAIN IN USE. WILL MONITOR. BED LEFT LOCKED IN LOW POSITION, BED ALARM INTACT, CALL LIGHT IN REACH.
--- NOTE | 2020-01-28 06:15 | NUR ---
SPOKE TO PODIATRY RESIDENT REGARDING CONSULT. NEW ORDERS RECEIVED FOR XRAY L FOOT/ANKLE, VENOUS/ARTERIAL US BLE, ESR/CRP.
[2020-01-28 06:38] LABS: BASO # 0.1 10*3/uL (0.0-0.1); BASO % 0.7 % (0.0-1.0); EOS # 0.2 10*3/uL (0.0-0.4); EOS % 1.8 % (1.0-4.0); HEMATOCRIT 40.3 % (37.0-47.0); LYMPH # 1.4 10*3/uL (1.3-4.4); MEAN CELL VOLUME 93.5 fl (81.0-99.0); MEAN CORPUSCULAR HGB 30.2 pg (27.0-31.0); MEAN CORPUSCULAR HGB CONC 32.3 g/dl (33.0-37.0); MEAN PLATELET VOLUME 9.1 fl (9.6-12.3); MONO # 0.7 10*3/uL (0.1-1.0); NEUT % 74.8 % (47.0-73.0); PLATELET COUNT AUTOMATED 282 10*3/uL (130-400); RED BLOOD COUNT 4.31 10*6/uL (4.10-5.10); RED CELL DISTRI WIDTH 13.5 % (0-14.5); WHITE BLOOD COUNT 9.4 10*3/uL (4.8-10.8)
--- NOTE | 2020-01-28 06:38 | NUR ---
DAUGHTER TIM CALLED AND UPDATED ON PLAN OF CARE.
[2020-01-28 06:49] LABS: ALKALINE PHOSPHATASE 62 U/L (45-117); BUN 16 mg/dl (7-24); CHLORIDE 112 mmol/L (98-107); CREATININE 0.89 mg/dL (0.55-1.02); POTASSIUM 3.4 mmol/L (3.5-5.1); SGOT/AST 11 IU/L (3-35); SGPT/ALT 12 U/L (12-78); SODIUM 143 mmol/L (136-145); TOTAL PROTEIN 6.3 gm/dL (6.4-8.2)
--- NOTE | 2020-01-28 07:38 | NUR ---
PHYSICAL THERAPY Screen and PT orders received, will follow. Thank you. Agus Snowden SPT Deirdre Horta PT
--- NOTE | 2020-01-28 07:48 | NUR ---
Occupational therapy order and nursing screen received. Will follow up with patient for completion of an OT evaluation. Thank you. Deanne Byers, OTR/L
[2020-01-28 08:00] VITALS: BP 151/90
--- NOTE | 2020-01-28 08:20 | NUR ---
SPEECH PATHOLOGY Nursing screen completed. Reports indicate acute confusion. This dept. will be available for consult as needed. YANI ANN MSCCC-MILLSTONE CLEANER
--- NOTE | 2020-01-28 08:41 | NUR ---
OT NOTE Occupational therapy order received. Attempted to see patient this AM; however, patient was under podiatry care. Spoke with podiatry in regards to LLE foot ulcers. Per podiatry, therapy to be placed on hold until further testing is completed. Will follow up when appropriate for an OT evaluation. Thank you. Deanne Byers, OTR/L
[2020-01-28 08:48] LABS: VITAMIN D, 25-HYDROXY 28.1 ng/mL (30-100)
--- NOTE | 2020-01-28 08:49 | NUR ---
PHYSICAL THERAPY Chart reviewed, prior to evaluation spoke with Podiatry regarding pt's LLE/foot ulcer. Per Podiatry to defer therapy until tests for L foot/ankle come back due to possible NWB status. Will attempt at a later time/date. Thank you. Agus Snowden SPT Deirdre Horta PT
--- NOTE | 2020-01-28 09:00 | NUR ---
Wool Fleece Grader in to talk to patient. Patient states lives at home with daughter. There are no steps in the home. Physician: marjorie [facility]: [facility] Home health services: none at present Patient's level of ADLs: MAX ASSIST Patient has working utilities: all working DME: hospital bed, transportation chair Follow-up physician's appointment after d/c: will be made by hospitalist nurse director upon discharge Does patient want to access PORTAL?: no Discharge plan case management visits with patient, she is unable to carry on a conversation, contacted patient's daughter regarding discharge plans, daughter stated patient lives at home with her, daughter stated patient has a hospital bed and transporation chair and a cane. she also stated patient has not walked for awhile and requires assistance with her adls, daughter stated she would like patient to return home when discharged discussed with her VNA and educated her on the services they provide, she declined any home services at this time, also discussed with her if patient would need to discharge to a short term correction if she could choose one to send referral, she stated she really wanted her mom to return home but if she needed a snf she would choose [facility]. case management will follow for needs. COLLEEN JOSHI
[2020-01-28 12:00] VITALS: BP 155/68
--- NOTE | 2020-01-28 13:28 | NUR ---
PHYSICAL THERAPY Reviewed doppler study report in chart, RLE is positive for an acute DVT in the femoral vein. Will defer therapy at this time and await further MD assessment and clearance for activity. Malaika Horta PT
[2020-01-28 16:00] VITALS: BP 154/62
--- NOTE | 2020-01-28 18:25 | NUR ---
SPOKE WITH PATIENT'S DAUGHTER TIM WHO IS PATIENT'S POA BY PHONE RE: PODIATRY CONSULT PLANNING FOR I & D LEFT FOOT WITH BONE BIOPSY AND POSSIBLE WOUND VAC APPLICATION. SHE IS AGREEABLE TO TO THE PROCEDURE TOMORROW AND ASSISTED WITH THE PRE-OP QUESTIONAIRE. SHE WILL BE AVAILABLE TOMORROW FOR SURGERY STAFF TO CALL AND OBTAIN CONSENTS AND ANSWER QUESTIONS, PER TIM. SHE VOICED CONCERNS THAT PATIENT HAS NOT HAD A BM SINCE December DESPITE EATING ADEQUATE AMOUNTS OF FOOD. WILL NOTIFY RESIDENT.
--- NOTE | 2020-01-28 18:30 | NUR ---
PER DR. EASLEY, MILK OF MAGNESIA TO BE ADMINISTERED PRN MED FOR CONSTIPATION, AND IF NOT EFFECTIVE IN 3 HOURS, ADMINISTER THE DULCOLAX ORDERED PRN.
--- NOTE | 2020-01-28 18:34 | NUR ---
MEDICATED WITH PRN MILK OF MAGNESIA FOR CONSTIPATION.
[2020-01-28 20:00] VITALS: BP 178/100
[2020-01-28 22:15] VITALS: BP 210/94
--- NOTE | 2020-01-28 22:24 | NUR ---
NOTIFIED OF ELEVATED BP. DISCUSSED HOME MEDS AND PATIENT RESPONDING "YES" WHEN ASKED IF IN PAIN. NEW ORDERS TO FOLLOW.
--- NOTE | 2020-01-28 22:31 | NUR ---
1.25 MG IV METOPROLOL ADMINISTRED PER ONE TIME ORDER FOR ELEVATED BP 210/94. PO ULTRAM ALSO GIVEN FOR PAIN. WILL MONITOR.
[2020-01-29] VITALS (11 sets, daily range): BP systolic 126–188; BP diastolic 59–115
--- NOTE | 2020-01-29 | NUR ---
BP NOW 188/94. PT DOES NOT ANSWER WHEN ASKED IF IN PAIN. WILL MONITOR.
--- NOTE | 2020-01-29 00:40 | NUR ---
BP REMAINS 182/88 MANUALLY. HR 72. MADE AWARE. OKAY TO GIVE COZAAR 50 MG PER HOME ORDER.
--- NOTE | 2020-01-29 00:58 | NUR ---
COZAAR ADMINISTERED AT THIS TIME, CRUSHED IN SMALL AMOUNT OF APPLESAUCE. PT TOOK WITHOUT DIFFICULTY. WILL MONITOR EFFECTIVENESS. CALL LIGHT IN REACH. BED ALARM INTACT.
[2020-01-29 01:36] LABS: BUN 15 mg/dl (7-24); CHLORIDE 117 mmol/L (98-107); CREATININE 0.75 mg/dL (0.55-1.02); POTASSIUM 3.6 mmol/L (3.5-5.1); SODIUM 144 mmol/L (136-145); TROPONIN I 0.025 ng/ml (<0.045)
--- NOTE | 2020-01-29 02:45 | NUR ---
BP NOW 168/65. EARLIER MEDICATION EFFECTIVE.
--- NOTE | 2020-01-29 04:00 | NUR ---
BP NOW 146/57 PER AUTO BP CUFF. NO S/S OF DISTRESS NOTED. WILL MONITOR. CALL LIGHT IN REACH.
--- NOTE | 2020-01-29 06:08 | NUR ---
NOTIFIED OF ARTERIAL US RESULTS SHOWING BIPHASIC WAVEFORMS OF THE PROXIMAL RIGHT COMMON FEMORAL ARTERY, BUT OTHERWISE, SHOWING ABNORMAL MONOPHASIC WAVEFORMS OF THE ARTERIES IN BLE. STATES HE WILL NOTIFY HIS ATTENDING OF RESULTS. INSTRUCTED TO KEEP PT ON FOR SURGERY AT THIS TIME AND PODIATRY WILL MAKE CHANGES IF NECESSARY.
--- NOTE | 2020-01-29 06:51 | NUR ---
CALLED. STATES NO DR FROM PODIATRY HAS CALLED PATIENT'S DAUGHTER TO EXPLAIN PROCEDURE SO THAT CONSENT CAN BE OBTAINED. SURGERY NOTIFIED. THIS RN CALLED PT'S DAUGHTER TIM TO NOTIFY HER THAT A CALL WILL BE COMING.
--- NOTE | 2020-01-29 06:58 | NUR ---
PT TAKEN OFF FLOOR FOR SURGERY.
--- NOTE | 2020-01-29 07:10 | NUR ---
PATIENT TO OR BY BED AT THIS TIME.
[2020-01-29 07:25] LABS: CHLORIDE 110 mmol/L (98-107); POTASSIUM 4.5 mmol/L (3.5-5.1); SODIUM 139 mmol/L (136-145)
[2020-01-29 07:26] LABS: BUN 25 mg/dl (7-24)
--- NOTE | 2020-01-29 07:50 | NUR ---
RN FIELD CASE MANAGER FAXED REFERRAL TO [facility] FOR REVIEW.
--- NOTE | 2020-01-29 08:50 | NUR ---
OT NOTE Occupational therapy order received. Attempted to see patient this AM however patient is out of the room at surgery for the LLE. Will follow up with MD for clarification of activity restrictions on the RLE due to the acute non-occlusive DVT. Thank you. Deanne Byers OTR/L
--- NOTE | 2020-01-29 08:56 | NUR ---
PHYSICAL THERAPY Spoke with nursing regarding pt's status,currently out of room at surgery for I&D of L foot with possible wound vac placment. Will follow at a later time for activity and speak with medical staff this AM at meeting regarding rx for RLE DVT. Will follow as medically appropriate/cleared. Deirdre Horta PT
--- NOTE | 2020-01-29 09:03 | NUR ---
PATIENT RETURNED FROM SURGERY, SEE SHIFT ASSESSMENTS FOR DETAILS.
--- NOTE | 2020-01-29 09:13 | NUR ---
RESUMING DIET AND MEDS. MEDICATED WITH PRN PO MILK OF MAGNESIA AT THIS TIME FOR CONSTIPATION.
--- NOTE | 2020-01-29 10:12 | NUR ---
LEFT MESSAGE ON DR. TURNER'S CELL PHONE RE: CONSULT.
--- NOTE | 2020-01-29 10:15 | NUR ---
DR. DUNN'S OFFICE STAFF NOTIFIED OF THE CONSULT RE: LEFT HEEL WOUND CULTURE GRAM NEGATIVE BACILLI.
--- NOTE | 2020-01-29 11:12 | NUR ---
DR. TURNER NOTIFIED OF THE CONSULT, HE NEEDS THE PATIENT TRANSFERRED TO [facility] FOR REVASCULARIZATION INTERVENTION IN THE MORNING. HE IS NOTIFYING THE NURSING WARDROBE CUSTODIAN.
--- NOTE | 2020-01-29 11:22 | NUR ---
DR. EASLEY AND DR. SOLORIO-PODIATRY NOTIFIED OF PATIENT NEEDING TRANSFER IN THE MORNING TO [facility].
--- NOTE | 2020-01-29 11:28 | NUR ---
Nutritional Support Services Note: Pts po intake is poor, wounds noted to foot. Ht.5' Wt.153#. IBW 90-110. Pt is being transferred to another hospital tomorrow. Recommend Ensure po TID with meals. Will follow if needed. Zulma Hunter Rdn Ld
--- NOTE | 2020-01-29 11:31 | NUR ---
DR. TURNER TO SPEAK WITH PATIENT'S DAUGHTER BY PHONE RE: REVASCULARIZATION SURGERY BEFORE ARRANGEMENTS ARE MADE FOR THE TRANSFER. IF CONSENT TO TRANSFER IS OBTAINED TODAY, PODIATRY RESIDENT WILL REMOVE THE WOUND VAC IN PREPARATION FOR TRANSFER.
--- NOTE | 2020-01-29 12:44 | NUR ---
DR. TURNER DID SPEAK WITH PATIENT'S POA/DAUGHTER RE: TRANSFER TO [facility] FOR REVASCULARIZATION PROCEDURE AT 7AM. OBTAINED CONSENT TO TRANSFER BY PHONE WITH 2 RN'S TO WITNESS. PHONED PODIATRY RESIDENT SO THAT HE MAY REMOVE WOUND VAC DRESSING AND REINFORCE THE POST OP DRESSING TO LEFT FOOT THAT REMAINS DIRECTED BY DR. CORNEJO.
--- NOTE | 2020-01-29 13:00 | NUR ---
PODIATRY RESIDENT IN TO REMOVE WOUND VAC DRESSING. SKIN GRAFT AND SUTURES LEFT INTACT, ADAPTIC, 4X4'S, ABD'S, KERLIX AND AILYAH WRAPS APPLIED. SCD SLEEVE AND TEDHOSE REMOVED FROM THE RIGHT LEG, HEEL PROTECTORS APPLIED.
--- NOTE | 2020-01-29 13:20 | NUR ---
PHYSICAL THERAPY Per medical meeting this morning, Dr. Gupta stated pt can be seen has been anticoagulated for RLE DVT. Status post op this morning for LLE I&D,bone debreidment L heel,debridement L foot arch w graft and wound vac placement. Reviewed notes prior to being seen this PM. Per MD notes pt being transfered to [facility] in AM of 8/6 for revascularization procedure. Spoke w nsg who verified transfer will defer therapy at this time. Thank you. Agus Snowden SPT Deirdre Horta PT
--- NOTE | 2020-01-29 13:46 | NUR ---
OT NOTE Occupational therapy order received. Per medical rounding meeting this AM, Dr. Gupta stated patient was okay to be seen and has been anticoagulated for the RLE DVT. Patient s/p a LLE I&D, wound vac placement is per podiatry is LLE NWB. Per discussion with nurse and chart, patient is being transferred in AM to [place] for a revascularization procedure. Will defer therapy at this time due to being transferred in AM. Thank you. Deanne Byers, OTR/L
--- NOTE | 2020-01-29 13:55 | NUR ---
MEDICATED WITH PRN PO TYLENOL FOR LEFT FOOT PAIN R/T DRESSING CHANGE EARLIER.
--- NOTE | 2020-01-29 14:05 | NUR ---
MEDICATED WITH PRN PO DULCOLAX FOR CONSTIPATION NOT RELIEVED BY MILK OF MAGNESIA GIVEN EARLIER TODAY.
--- NOTE | 2020-01-29 14:50 | NUR ---
PATIENT RESTING QUIETLY W/NO S/S PAIN. TYLENOL GIVEN EARLIER EFFECTIVE.
--- NOTE | 2020-01-29 15:15 | NUR ---
SENIOR CONSTRUCTION PROJECT MANAGER FAXED CLINICAL UPDATES TO [facility]. PATIENT IS STILL BEING REVIEWED.
--- NOTE | 2020-01-29 18:53 | NUR ---
LEFT MESSAGE ON PATIENT DAUGHTER'S CELL PHONE RE: ROPING MACHINE TENDER TIME TO TRANSFER TO [facility] CHANGED TO 10:30 AM FOR THE PROCEDURE AT 11:30, AND PATIENT TO GO TO [facility] DRIVER HELPER FIRST, THEN WILL BE ADMITTED TO 6TH FLOOR. PHONE NUMBER TO 6TH FLOOR NURSES STATION PROVIDED.
--- NOTE | 2020-01-29 20:30 | NUR ---
MADE AWARE OF PT BEING TRANSFERRED TO [facility] IN AM AND NEEDING DISCHARGE ORDER.
[2020-01-30] VITALS: BP 147/74
--- NOTE | 2020-01-30 06:31 | NUR ---
REQUESTED DISCHARGE ORDER FROM . STATES HE WILL TALK TO .
--- NOTE | 2020-01-30 07:06 | NUR ---
DAUGHTER UPDATED ON PLAN OF CARE. PHONE NUMBER TO 6TH FLOOR AT [facility] PROVIDED ([phone])
--- NOTE | 2020-01-30 07:30 | NUR ---
DR Taya MILLER ROUNDED AND CHANGED DRESSING TO BLE. PT IS TO LEAVE FOR [facility] FOR REVASCULARIZATION.
[2020-01-30 08:00] VITALS: BP 146/57
[2020-01-30 08:17] LABS: BASO # 0.1 10*3/uL (0.0-0.1); BASO % 0.5 % (0.0-1.0); EOS # 0.3 10*3/uL (0.0-0.4); EOS % 3.4 % (1.0-4.0); HEMATOCRIT 41.4 % (37.0-47.0); LYMPH # 1.4 10*3/uL (1.3-4.4); LYMPH % 15.1 % (27.0-41.0); MEAN CELL VOLUME 97.4 fl (81.0-99.0); MEAN CORPUSCULAR HGB 29.9 pg (27.0-31.0); MEAN CORPUSCULAR HGB CONC 30.7 g/dl (33.0-37.0); MONO # 0.8 10*3/uL (0.1-1.0); MONO % 8.2 % (3.0-9.0); NEUT # 6.7 10*3/uL (2.3-7.9); NEUT % 72.2 % (47.0-73.0); PLATELET COUNT AUTOMATED 221 10*3/uL (130-400); RED BLOOD COUNT 4.25 10*6/uL (4.10-5.10); RED CELL DISTRI WIDTH 13.9 % (0-14.5); WHITE BLOOD COUNT 9.3 10*3/uL (4.8-10.8)
--- NOTE | 2020-01-30 08:21 | NUR ---
Notified Dr Allen of need for d/c for pt to leave for [facility] for procedure with DR. Stallworth. [facility].Awaiting orders.
--- NOTE | 2020-01-30 09:24 | NUR ---
PATIENT HAS MEDICARE INSURANCE AND THERE HAS BEEN NO PT EVAL COMPLETED. REFERRAL IS ON HOLD WITH [facility].
[2020-01-30 10:08] LABS: ACID FAST SPEC PROCESSING Direct Inoculation (.); ACID FAST SPEC PROCESSING Tissue Grinding (.)
--- NOTE | 2020-01-30 10:34 | NUR ---
Discharge instructions reviewed with patient/family. Patient receptive and verbalizes understanding. Follow-up care arranged. Written instructions given to patient/family. TONA LEBLANC
--- NOTE | 2020-01-30 10:46 | NUR ---
REPORT CALLED TO ED HERNÁNDEZ AT [facility].
--- NOTE | 2020-01-30 10:49 | NUR ---
NOTIFIED DAUGHTER, FAY, OF [place] [facility] [place]
== END 2020-01-30 10:49 | disposition short-term general hospital (02) | DRG 463 ==
LOC: ED 14:17 → EDHOLD 18:36 → 5E 18:36
PROVIDERS: Emergency Medicine; Hospitalist; Podiatrist; Student in an Organized Health Care Education/Training Program; ADMIT Student in an Organized Health Care Education/Training Program
PROC: 0QBM0ZX Excision of Left Tarsal, Open Approach, Diagnostic (ICD-10-PCS; principal; 2020-01-29)
PROC: 0HRNXK3 Replacement of Left Foot Skin with Nonautologous Tissue Substitute, Full Thickness, External Approach (ICD-10-PCS; principal; 2020-01-29)
PROC: 0QBM0ZZ Excision of Left Tarsal, Open Approach (ICD-10-PCS; principal; 2020-01-29)
PROC: 0HBNXZZ Excision of Left Foot Skin, External Approach (ICD-10-PCS; principal; 2020-01-29)
DX: M86.8X7 Other osteomyelitis, ankle and foot (principal); G93.41 Metabolic encephalopathy; L03.116 Cellulitis of left lower limb; E44.0 Moderate protein-calorie malnutrition; N39.0 Urinary tract infection, site not specified; I82.411 Acute embolism and thrombosis of right femoral vein; Z16.12 Extended spectrum beta lactamase (ESBL) resistance; L97.521 Non-pressure chronic ulcer of other part of left foot limited to breakdown of skin; E87.6 Hypokalemia; E87.8 Other disorders of electrolyte and fluid balance, not elsewhere classified; R82.71 Bacteriuria; E78.2 Mixed hyperlipidemia; K21.9 Gastro-esophageal reflux disease without esophagitis; F03.90 Unspecified dementia, unspecified severity, without behavioral disturbance, psychotic disturbance, mood disturbance, and anxiety; E55.9 Vitamin D deficiency, unspecified; K44.9 Diaphragmatic hernia without obstruction or gangrene; Z03.818 Encounter for observation for suspected exposure to other biological agents ruled out; N18.3 Chronic kidney disease, stage 3 (moderate); I12.9 Hypertensive chronic kidney disease with stage 1 through stage 4 chronic kidney disease, or unspecified chronic kidney disease; I73.9 Peripheral vascular disease, unspecified; M21.962 Unspecified acquired deformity of left lower leg; M21.961 Unspecified acquired deformity of right lower leg; B96.89 Other specified bacterial agents as the cause of diseases classified elsewhere; B96.20 Unspecified Escherichia coli [E. coli] as the cause of diseases classified elsewhere; B96.4 Proteus (mirabilis) (morganii) as the cause of diseases classified elsewhere; R79.89 Other specified abnormal findings of blood chemistry; Z86.718 Personal history of other venous thrombosis and embolism; Z88.5 Allergy status to narcotic agent; Z91.040 Latex allergy status; Z90.710 Acquired absence of both cervix and uterus; Z96.651 Presence of right artificial knee joint; Z87.891 Personal history of nicotine dependence; Z83.6 Family history of other diseases of the respiratory system; Z82.49 Family history of ischemic heart disease and other diseases of the circulatory system; Z79.899 Other long term (current) drug therapy; Z68.29 Body mass index [BMI] 29.0-29.9, adult

== ENCOUNTER 2020-03-30 16:17 | Inpatient (IN) | payer MEDICARE ==
[~2020-03-30] VITALS: Ht 160 cm; Wt 58.5 kg
[~2020-03-30 16:17] MED LIST changes: +LOSARTAN POTASS50 M1 PO
[2020-03-30 16:26] VITALS: BP 162/61
[2020-03-30 17:44] LABS: HEMATOCRIT 38.1 % (37.0-47.0); MEAN CELL VOLUME 95.5 fl (81.0-99.0); MEAN CORPUSCULAR HGB 28.3 pg (27.0-31.0); MEAN CORPUSCULAR HGB CONC 29.7 g/dl (33.0-37.0); MEAN PLATELET VOLUME 9.2 fl (9.6-12.3); NUCLEATED RED BLOOD CELL 0.2 % (0.0-0.0); PLATELET COUNT AUTOMATED 504 10*3/uL (130-400); RED BLOOD COUNT 3.99 10*6/uL (4.10-5.10); RED CELL DISTRI WIDTH 16.1 % (0-14.5); WHITE BLOOD COUNT 10.3 10*3/uL (4.8-10.8)
[2020-03-30 18:02] LABS: PLATELET SUFFICIENCY HIGH (NORMAL); TOTAL CELLS COUNTED 100 #CELLS
[2020-03-30 18:03] LABS: POLYCHROMASIA SLIGHT
[2020-03-30 18:05] LABS: CREATININE 1.49 mg/dL (0.55-1.02); POTASSIUM 4.7 mmol/L (3.5-5.1); TOTAL PROTEIN 7.8 gm/dL (6.4-8.2)
[2020-03-30 18:08] VITALS: BP 154/86
[2020-03-30 18:09] LABS: ABG BASE EXCESS -4.6 mmol/L (-2.0-2.0); ARTERIAL BLOOD GAS PH 7.472 (7.35-7.45)
--- NOTE | 2020-03-30 21:00 | NUR ---
PT HAS AUDIBLE AND WORSENING RALES AND RHONCHI, KONRAD MERRITT AWARE. CALLED REPSIRATORY TO SUCTION PT PER KONRAD MERRITT.
--- NOTE | 2020-03-30 21:27 | NUR ---
RESP AT BEDSIDE TO SUCTION PATIENT.
[2020-03-30 21:33] LABS: BILIRUBIN Negative (Negative); BLOOD 2+ (Negative); CLARITY Turbid (Clear); COLOR Dark Yellow (Yellow); GLUCOSE Negative (Negative); KETONE Trace (Negative); LEUKO ESTERASE 3+ (Negative); NITRITE Positive (Negative)
--- NOTE | 2020-03-30 21:37 | NUR ---
PTS BREATHING HAS IMPROVED. ABLE TO TRANSITION TO 5L O2 VIA NC. SPO2 96%. RHONCHI AND RALES AUDIBLE VIA AUSCULTATION. LOWER LOBES DIM. IV INFUSING PER ORDERS.
[2020-03-30 21:40] VITALS: BP 102/66
--- NOTE | 2020-03-30 21:44 | NUR ---
RESIDENTS AT BEDSIDE TO EXAM PT.
[2020-03-30 21:48] LABS: EPITHELIAL CELLS 0-2; WBC 51-100 wbc/hpf (0-5)
[2020-03-30 21:49] LABS: BACTERIA 3+; YEAST 3+
--- NOTE | 2020-03-30 22:36 | NUR ---
DRESSING CHANGE TO MARIA ISABEL FEET. PICTURES TAKEN. SEE KONRAD PRICE CLERK WOUND DOCUMENTATION. ABD PAD DRESSING TO L FOOT REMOVED WITH 50% SATURATION OF GREEN FOUL SMELLING PURULENT DRAINAGE. KONRAD MERRITT AT BEDSIDE TO ASSESS WOUNDS. XRAYS ORDERED PER KONRAD MERRITT AND WOUND PICTURES TAKEN. R FOOT ABD PAD DRESSING DRY AND INTACT.
--- NOTE | 2020-03-30 22:55 | NUR ---
PT TO CT PRIOR TO TRANSFER UP STAIRS. CT AT BEDSIDE TO TRANSPORT PT TO CT AT THIS TIME.
--- NOTE | 2020-03-30 23:00 | NUR ---
PER KONRAD MERRITT, HOLD INPATIENT ATIVAN ORDER. WILL NOTIFY INPATIENT NURSE.
--- NOTE | 2020-03-30 23:03 | NUR ---
DR PORTER AWARE OF CRITICAL LACTIC ACID. PATIENT HAS NOT ARRIVED TO THE FLOOR YET
[2020-03-30 23:20] VITALS: BP 83/45
--- NOTE | 2020-03-30 23:20 | NUR ---
Time: 2319 A 84 year old FEMALE admitted to 4E under services of PATRICIA ARCHULETA DO. Pt. arrived via stretcher from ER. Chief complaint: SHORTNESS OF BREATH. RHODA GATICA
--- NOTE | 2020-03-31 | NUR ---
DR PATEL AWARE OF PATIENT'S BLOOD PRESSURE AND RATTLING, RHONCHI, AND RHALES. STATES TO HOLD THE ATIVAN AND FLUIDS AT THIS TIME.
--- NOTE | 2020-03-31 00:45 | NUR ---
UNABLE TO COMPLETE MED REC AT THIS TIME
--- NOTE | 2020-03-31 00:47 | NUR ---
PATIENT 84% ON 6 LITERS NASAL CANNULA. PLACED ON 15LITER NONREBREATHER
--- NOTE | 2020-03-31 01:27 | NUR ---
PATIENT RESTING IN BED WITH NON REBREATHER INTACT
--- NOTE | 2020-03-31 01:34 | NUR ---
NOTIFIED OF LACTIC ACID 6.8. NO NEW ORDERS
[2020-03-31 04:00] VITALS: BP 139/76
--- NOTE | 2020-03-31 04:22 | NUR ---
PATIENT TAKEN OFF OF NON REBREATHER AND PLACED ON 6L NASAL CANNULA. PULSE OX 96%
--- NOTE | 2020-03-31 05:00 | NUR ---
DR PORTER STATES TO LEAVE NORMAL SALINE INFUSING AT 100CC/HR PER ORDER
--- NOTE | 2020-03-31 06:42 | NUR ---
PATIENT FOUND TO BE 75% ON 6 LITERS NASAL CANNULA. NON REBREATHER APPLIED, UP TO 97%.
[2020-03-31 08:00] VITALS: BP 145/96
[2020-03-31 08:05] LABS: HEMATOCRIT 31.6 % (37.0-47.0); MEAN CELL VOLUME 96.3 fl (81.0-99.0); MEAN CORPUSCULAR HGB CONC 30.1 g/dl (33.0-37.0); MEAN PLATELET VOLUME 9.2 fl (9.6-12.3); NUCLEATED RED BLOOD CELL 0.1 10*3/uL (0.0-0.0); NUCLEATED RED BLOOD CELL 0.4 % (0.0-0.0); RED BLOOD COUNT 3.28 10*6/uL (4.10-5.10); RED CELL DISTRI WIDTH 16.2 % (0-14.5); WHITE BLOOD COUNT 13.9 10*3/uL (4.8-10.8)
[2020-03-31 08:06] LABS: PLATELET COUNT AUTOMATED 309 10*3/uL (130-400)
[2020-03-31 08:12] LABS: ACT PARTIAL THROMBO TIME 27.2 SECONDS (20.0-32.1); INTERNATIONAL NORM RATIO 1.2 (2.0-3.5)
[2020-03-31 08:19] LABS: ALBUMIN 2.4 gm/dl (3.1-4.5); CREATININE 1.53 mg/dL (0.55-1.02); POTASSIUM 4.5 mmol/L (3.5-5.1); TOTAL PROTEIN 6.4 gm/dL (6.4-8.2)
[2020-03-31 08:20] LABS: BURR CELLS FEW; PLATELET SUFFICIENCY NORMAL (NORMAL); POLYCHROMASIA SLIGHT; TOTAL CELLS COUNTED 100 #CELLS; TOXIC GRANULATION SLIGHT
[2020-03-31 08:21] LABS: OVALOCYTES FEW
--- NOTE | 2020-03-31 09:20 | NUR ---
Attempted to contact [facility] to confirm patient is with their services at home, unable to contact, left voicemail.
--- NOTE | 2020-03-31 09:22 | NUR ---
TOOK PT OFF NON REBREATHER AND PLACED ON VENTI MASK AT 50%-15L. SPO2 96-99%
--- NOTE | 2020-03-31 11:05 | NUR ---
COVID SWAB TAKEN TO LAB PER ORDERS.
--- NOTE | 2020-03-31 11:41 | NUR ---
WATER FABRICATOR OPERATOR SPOKE WITH INPATIENT SCIENCE INSTRUCTOR DUSTIN ALONSO SHE STATED THAT IS DISCOURAGED, HOWEVER, 1 PERSON WOULD BE ABLE TO COME IN TO SEE THE PATIENT SINCE SHE IS BEING ASSESSED FOR HOSPICE.
[2020-03-31 12:00] VITALS: BP 160/77
--- NOTE | 2020-03-31 12:09 | NUR ---
Contacted patients daughter Jairo Anderson. She stated this patient was at [facility] for 11 days and when she was discharged to home, the hospital put her on [facility]. She was not given a choice of hospice companies and is not happey with [facility] so she sent her mother to the hospital. She has made several attemptes to contact [facility] and they will not return her calls in a timely fashion, she asked me to call them and have them discharge her from their services. I did notify [facility] of the daughters wishes. I asked her if she would be interested in another hospice company and discussed the different hospice agencies we have on our list. She asked if we could contact [facility]. I spoke with Sivakumar at [facility] who in turn spoke with patients daughter. When I spoke with daughter again she was very happy with her conversation with Sivakumar and thankful for answering all of her questions. She told me she would like me to fax [facility] patient information so they can come in and assess the patient. We will go from there once the assessment is complete. Faxed referral to [facility] and notified Sivakumar. will follow
[2020-03-31 16:00] VITALS: BP 172/91
--- NOTE | 2020-03-31 17:20 | NUR ---
DR DUNN'S ANSWERING SERVICE CALLED RE: CONSULT.
--- NOTE | 2020-03-31 17:53 | NUR ---
DR RIDLEY NOTIFIED OF CONSULT.
--- NOTE | 2020-03-31 18:53 | NUR ---
DR DUNN CALLED INTO PT ROOM, THIS NURSE SPOKE WITH HER. UPDATED ON PT STATUS. ORDERS RECEIVED.
--- NOTE | 2020-03-31 19:06 | NUR ---
PT NONVERBAL. PT REMAINS ON ROOM AIR. RESP EASY AND NONLABORED. ISOLATION PRECAUTIONS MAINTAED. WILL MONITOR
[2020-03-31 20:00] VITALS: BP 157/80
--- NOTE | 2020-03-31 21:18 | NUR ---
SEVERAL ATTEMPTS HAVE BEEN MADE TO GET IV ACCESS. NO SUCCESS AT THIS TIME
--- NOTE | 2020-03-31 21:20 | NUR ---
DR PORTER MADE AWARE THAT PATIENT HAS NO IV ACCESS AT THIS TIME
--- NOTE | 2020-03-31 22:52 | NUR ---
DR MATOS AWARE OF SEVERAL ATTEMPTS AT IV ACCESS, EVEN WITH AN ULTRASOUND WITH NO SUCCESS.
[2020-04-01] VITALS: BP 143/78
--- NOTE | 2020-04-01 00:10 | NUR ---
PATIENT'S PULSE OX 92% ON ROOM AIR. PLACED ON 2LITERS NASAL CANNULA
[2020-04-01 06:49] VITALS: BP 173/76
--- NOTE | 2020-04-01 07:04 | NUR ---
PATIENT SUCTIONED FOR THICK, WHITE, FOAMY SPUTUM
[2020-04-01 07:42] LABS: HEMATOCRIT 36.8 % (37.0-47.0); MEAN CELL VOLUME 96.6 fl (81.0-99.0); MEAN CORPUSCULAR HGB 28.6 pg (27.0-31.0); MEAN CORPUSCULAR HGB CONC 29.6 g/dl (33.0-37.0); MEAN PLATELET VOLUME 9.4 fl (9.6-12.3); NUCLEATED RED BLOOD CELL 0.2 10*3/uL (0.0-0.0); PLATELET COUNT AUTOMATED 338 10*3/uL (130-400); RED BLOOD COUNT 3.81 10*6/uL (4.10-5.10); RED CELL DISTRI WIDTH 16.7 % (0-14.5); WHITE BLOOD COUNT 15.6 10*3/uL (4.8-10.8)
[2020-04-01 07:53] LABS: CREATININE 1.38 mg/dL (0.55-1.02); POTASSIUM 4.1 mmol/L (3.5-5.1)
[2020-04-01 08:09] LABS: BURR CELLS FEW; DOHLE BODIES FEW; OVALOCYTES FEW; PLATELET SUFFICIENCY NORMAL (NORMAL); POLYCHROMASIA SLIGHT; TOTAL CELLS COUNTED 100 #CELLS; TOXIC GRANULATION SLIGHT
--- NOTE | 2020-04-01 10:35 | NUR ---
Contacted Sivakumar from [facility] who is stating he is waiting to hear from the nurse Higinio
--- NOTE | 2020-04-01 11:05 | NUR ---
Spoke with Sivakumar from [facility]. He stated the daughter, Jairo and hospice nurse Lenard are meeting at the hospital today after 2 PM to sign papers for patient to admitt into [facility] hospice.
[2020-04-01 12:00] VITALS: BP 150/74
--- NOTE | 2020-04-01 13:57 | NUR ---
[facility] stating they are unable to admit patient under hospice services today because the daughter signed the papers for [facility] today. You cannot have 2 hospice companies on the same day. Sivakumar said CECILIA will reach out to the daughter and find a meeting time the them to meet to sign paperwork. Most likely after 2pm tomorrow 04/02/2020
[2020-04-01 16:00] VITALS: BP 139/84
[2020-04-01 20:00] VITALS: BP 156/90; BP 157/101
[2020-04-02] VITALS: BP 137/84
[2020-04-02 07:09] LABS: CREATININE 1.47 mg/dL (0.55-1.02); POTASSIUM 3.7 mmol/L (3.5-5.1)
[2020-04-02 07:18] LABS: BASO % 0.2 % (0.0-1.0); EOS % 0.2 % (1.0-4.0); HEMATOCRIT 31.9 % (37.0-47.0); LYMPH # 1.1 10*3/uL (1.3-4.4); MEAN CELL VOLUME 94.1 fl (81.0-99.0); MEAN CORPUSCULAR HGB 28.9 pg (27.0-31.0); MEAN CORPUSCULAR HGB CONC 30.7 g/dl (33.0-37.0); MEAN PLATELET VOLUME 9.6 fl (9.6-12.3); MONO # 0.5 10*3/uL (0.1-1.0); NEUT # 15.8 10*3/uL (2.3-7.9); NEUT % 89.2 % (47.0-73.0); NUCLEATED RED BLOOD CELL 0.2 10*3/uL (0.0-0.0); NUCLEATED RED BLOOD CELL 0.8 % (0.0-0.0); PLATELET COUNT AUTOMATED 344 10*3/uL (130-400); RED BLOOD COUNT 3.39 10*6/uL (4.10-5.10); RED CELL DISTRI WIDTH 16.9 % (0-14.5); WHITE BLOOD COUNT 17.7 10*3/uL (4.8-10.8)
[2020-04-02 08:00] VITALS: BP 157/82
[2020-04-02 12:00] VITALS: BP 154/86
--- NOTE | 2020-04-02 13:08 | NUR ---
Daughter is agreeable to inpatient hospice at this time. Spoke with Sivakumar at [facility]. AJ will be meeting with patients daughter here at the hospital to sign papers for [facility] hosp[facility] at 3PM this afternoon.
--- NOTE | 2020-04-02 13:49 | NUR ---
SPEECH PATHOLOGY Clinical swallowing evaluation completed as per orders due to suspected aspiration pneumonia. Patient was admitted with change in mental status, tachypnea and decreased intake at home. Medical history includes lactic acidosis, Alzheimer's dementia, pneumonia, HTN, heart failure and GERD. Patient was on hospice services at home and nonverbal at baseline. At time of assessment, patient was laying in bed with eyes open, but with poor awareness. She elicited no response to clinician and stared at the ceiling for the entire encounter. She followed no commands and displayed consistent open mouth position. She was receiving o2 via NC with rapid respirations displayed. She displayed poor response to oral stim. A cup was placed to her mouth to elicit response to it but she did not close her mouth around the cup and liquid spilled from the cup and down her face, with no response from patient. Oral presentations were not given due to status. Recommend patient remain NPO as she cannot safely tolerate oral feeding at this time. Orders have also been received for MBS however this is not appropriate at this time due to severity of condition. Will continue to monitor patient's status for continued assessment as appropriate. Patient's nurse was educated on results and lesli. and verbalized understanding. Thank you for this referral. YANI ANN MSCCC-DANCE PROFESSOR
[2020-04-02 16:00] VITALS: BP 124/96
[2020-04-02 20:00] VITALS: BP 162/82
--- NOTE | 2020-04-02 20:00 | NUR ---
PATIENT AWAKE IN BED. NON VERBAL. VERY MOIST SECRETIONS. PATIENT SUCTIONED AT THIS TIME. RESPIRATIONS EASY, NON LABORED. VSS. PATIENT REPOSITIONED IN BED. BED IN LOWEST POSITION,CALL LIGHT WITHIN REACH.BED ALARM ON.
--- NOTE | 2020-04-02 22:30 | NUR ---
PATIENT STILL VERY MOIST DESPITE BEING SUCTIONED OFTER. NOTIFIED DR. EGAN THAT PATIENT MAY BENEFIT FROM ATROPINE DROPS. DR ROSENBERG TO ORDER DROPS
[2020-04-03] VITALS: BP 154/93
--- NOTE | 2020-04-03 06:31 | NUR ---
NOTIFIED DR. PORTER PATIENT URINE CULTURE IS RESULTING ECOLI. NO NEW ORDERS RECEIVED. WILL CONTINUE TO MONITOR.
[2020-04-03 07:11] LABS: HEMATOCRIT 34.5 % (37.0-47.0); MEAN CORPUSCULAR HGB 28.5 pg (27.0-31.0); MEAN CORPUSCULAR HGB CONC 29.3 g/dl (33.0-37.0); MEAN PLATELET VOLUME 9.6 fl (9.6-12.3); NUCLEATED RED BLOOD CELL 0.2 10*3/uL (0.0-0.0); NUCLEATED RED BLOOD CELL 1.3 % (0.0-0.0); PLATELET COUNT AUTOMATED 245 10*3/uL (130-400); RED BLOOD COUNT 3.54 10*6/uL (4.10-5.10); RED CELL DISTRI WIDTH 17.4 % (0-14.5); WHITE BLOOD COUNT 18.5 10*3/uL (4.8-10.8)
[2020-04-03 07:13] LABS: MEAN CELL VOLUME 97.5 fl (81.0-99.0)
[2020-04-03 07:15] LABS: CREATININE 1.76 mg/dL (0.55-1.02)
--- NOTE | 2020-04-03 07:24 | NUR ---
PATTERN CLERK REACHED OUT TO [facility]. RN CECILIA WAS HERE YESTERDAY TO ADMIT THE PATIENT. FAMILY WERE SUPPOSED TO MEET HIM AT 3PM. FAMILY NEVER CAME THEN CALLED AND RESCHEDULED FOR 1PM TODAY. ELOISE NOTIFIED WORK MANUFACTURING MACHINE OPERATORQuinten CARABALLO.
[2020-04-03 07:44] LABS: ACANTHOCYTES FEW; PLATELET SUFFICIENCY NORMAL (NORMAL); TOTAL CELLS COUNTED 100 #CELLS
[2020-04-03 08:00] VITALS: BP 136/66
--- NOTE | 2020-04-03 11:08 | NUR ---
SPEECH THERAPY Spoke with patient's nurse Kourtney regarding patient's status this date and possibility for swallowing evaluation. Nurse reported patient's status has remained consistent and she did not appear appropraite for PO intake. Nursing staff additonally reported possible placement on hospice this afternoon. Should change in status occur, this department is available for continued consult for swallow evaluation. Thank you. Alecia Ricci MA [facility]
[2020-04-03 12:00] VITALS: BP 126/60
--- NOTE | 2020-04-03 14:55 | NUR ---
WEAVER TIRE CORD RECEIVED CALL FROM JOSE ANGEL CARABALLO, BOTH [facility] RN CECILIA AND DAUGHTER ARE PRESENT. WEAVER TIRE CORD CONTACTED RENÉ SILVESTRE WHO STATED SHE WOULD BE ON HER WAY TO SPEAK WITH THEM.
[2020-04-03 16:00] VITALS: BP 138/63
[2020-04-03 20:00] VITALS: BP 130/64
--- NOTE | 2020-04-03 22:14 | NUR ---
PATIENT LAYING IN BED, EYES OPENED. NO SIGNS OF DISTRESS. RESPIRATIONS EASY, NON LABORED. VSS. BED IN LOWEST POSITION,CALL LIGHT WITHIN REACH. BED ALARM ON. WILL CONTINUE TO MONITOR.
[2020-04-04] VITALS: BP 135/76
--- NOTE | 2020-04-04 01:30 | NUR ---
PATIENT WASHED UP. DRESSING ON COCCYX CHANGED PER ORDERS. MOUTH CARE PERFORMED. PAITENT REPOSITIONED ONTO LEFT SIDE. HEEL PROTECTORS PLACED ON PATIENT. BED IN LOWEST POSITOIN,CALL LIGHT WITHIN REACH. BED ALARM ON. WILL CONTINUE TO MONITOR.
--- NOTE | 2020-04-04 04:00 | NUR ---
PATIENT SLEEPING. NO SIGNS OF DISTRESS. BED IN LOWEST POSITION, CALL LIGHT WITHIN REACH. WILL CONTINUE TO MONITOR.
[2020-04-04 08:00] VITALS: BP 96/42
--- NOTE | 2020-04-04 09:19 | NUR ---
Spoke to Jesica at [facility] regarding their hospice house in [place] at [place]. She states the patient would be admitted [facility] for uncontrollable symptoms. Once those symptoms were controlled then the patient would either go home with family, to a nursing facility, or depending on bed availability admitted at the hospice house. Medicare would pay for the hospice services but does not cover room and board. Room and board would be private pay as the patient doesn't have Medicaid. Cost would be about $200 a day. Rhonda Pyle notified.
--- NOTE | 2020-04-04 09:23 | NUR ---
Medicated with iv ativan per prn order for s/s of anxiety.
--- NOTE | 2020-04-04 09:39 | NUR ---
Podiatry resident Dr. Cortez in and changed dressings to pt feet.
--- NOTE | 2020-04-04 10:00 | NUR ---
Pt less restless.
--- NOTE | 2020-04-04 11:49 | NUR ---
ANSWERING SERVICE WAS NOTIFIED OF DR. SHAUN VALENCIA. RESPONSE OF NOTIFICATION WAS STATES THAT DAVID HUANG DANCE CRITIC IS COIL CONNECTOR REPAIRER AND THEY WILL FORWARD INFORMATION . TO HER. TINY SMITH
[2020-04-04 12:00] VITALS: BP 102/62
--- NOTE | 2020-04-04 12:00 | NUR ---
Telephone consent obtained from daughter and mpoa Jairo Teresa for release of information from [facility] regarding revascularization.
--- NOTE | 2020-04-04 12:02 | NUR ---
Return call received from Isabella Hurst. Notified of consult. States she will see pt later.
--- NOTE | 2020-04-04 12:52 | NUR ---
Medicated with dilaudid iv prior to bedside debridement.
--- NOTE | 2020-04-04 13:15 | NUR ---
Post debridement photos taken. Specimens labeled as instructed by Dr. North. Three specimens sent to lab. Dr. Cortez states he will order in computer.
--- NOTE | 2020-04-04 13:20 | NUR ---
Pt tolerated bedside debridement. No need for lidocaine so this will be returned to pyxis. No signs of pain noted.
--- NOTE | 2020-04-04 13:43 | NUR ---
Spoke with Nancie In rosaura regarding specimens sent to lab. States that they do have cultures in process for tissue and bone that was sent. States she spoke with the resident and the orders were entered. States that they did not have enough to do an AFB on the bone and soft tissue in the wound culture that was send. Resident Dr. Jones was notified of this. I am unable to see the orders on my side I notified her and just wanted to make sure the orders were in. Pt also has wound vac on and Dr. Jones is putting in orders for that.
--- NOTE | 2020-04-04 14:00 | NUR ---
Spoke with Vicente from the lab, states that he does not have orders for specimens that were sent today. I told him I had spoke with Nancie regarding this and he would speak with her.
--- NOTE | 2020-04-04 14:43 | NUR ---
Spoke with Vicente from the lab. He came to the floor with specimens. States that Nancie told him these were new specimens and orders needed entered. I notified him of conversation with Nancie in the lab. I also spoke with Cynthia Nunez regarding this.
--- NOTE | 2020-04-04 15:16 | NUR ---
Dr. Álvarez notified of consult.
--- NOTE | 2020-04-04 15:42 | NUR ---
Iv site to rt arm leaking at site. Notified by PA that bed was wet at site of arm. Attempted iv start x2 unable at this time. Requested another RN to try.
[2020-04-04 16:00] VITALS: BP 106/45
--- NOTE | 2020-04-04 16:00 | NUR ---
Isabella Hurst here for ID. States she was going to add zosyn to iv antibiotics.
--- NOTE | 2020-04-04 16:09 | NUR ---
Unable to obtain iv site on pt. Notified Dr. Mckoy.
--- NOTE | 2020-04-04 17:22 | NUR ---
Spoke with Dr. Brown regarding no IV currently, was unable to obtain site, and Dr. Mckoy was notified but it had been awhile. Just touching base to see what the plan was. States he will speak with Dr. Mckoy.
--- NOTE | 2020-04-04 19:30 | NUR ---
REPORT RECEIVED. PT LYING IN BED, O2 INTACT. PT ABLE TO MAKE EYE CONTACT, NO VERBALIZATION. PT APPEARS COMFORTABLE, NO S/S OF DISTRESS NOTED. CALL LIGHT IN REACH
[2020-04-04 20:00] VITALS: BP 139/90
--- NOTE | 2020-04-04 21:59 | NUR ---
IN TO SEE PT. PT LYING WITH EYES CLOSED. NO S/S OF DISTRESS NOTED. WOUND VAC INTACT. CALL LIGHT IN REACH
--- NOTE | 2020-04-04 22:54 | NUR ---
IV STARTED IN LEFT WRIST 24 GAUGE. HEP LOCKED. STARTED BY NURSE FRANKS. PT TOLERATED WELL.
[2020-04-05] VITALS: BP 121/56
[2020-04-05 06:55] LABS: HEMATOCRIT 32.8 % (37.0-47.0); MEAN CORPUSCULAR HGB 28.4 pg (27.0-31.0); MEAN CORPUSCULAR HGB CONC 29.3 g/dl (33.0-37.0); NUCLEATED RED BLOOD CELL 0.3 10*3/uL (0.0-0.0); NUCLEATED RED BLOOD CELL 2.8 % (0.0-0.0); RED BLOOD COUNT 3.38 10*6/uL (4.10-5.10); RED CELL DISTRI WIDTH 17.3 % (0-14.5); WHITE BLOOD COUNT 8.8 10*3/uL (4.8-10.8)
[2020-04-05 06:59] LABS: CREATININE 1.43 mg/dL (0.55-1.02); POTASSIUM 3.4 mmol/L (3.5-5.1)
--- NOTE | 2020-04-05 07:00 | NUR ---
ARRIVED ON SHIFT,REPORT RECEIVED FROM OFFGOING NURSE,ASSUMED CARE OF PATIENT.
--- NOTE | 2020-04-05 07:05 | NUR ---
DR. ESTRADA NOTIFIED OF CRITICAL SODIUM AND CHLORIDE
[2020-04-05 07:13] LABS: PLATELET COUNT AUTOMATED 142 10*3/uL (130-400)
[2020-04-05 07:29] LABS: BURR CELLS FEW; PLATELET SUFFICIENCY NORMAL (NORMAL); POLYCHROMASIA SLIGHT; SCHISTOCYTES FEW; TOTAL CELLS COUNTED 100 #CELLS
[2020-04-05 07:30] LABS: OVALOCYTES FEW
--- NOTE | 2020-04-05 07:58 | NUR ---
Shift chart check completed.
[2020-04-05 08:00] VITALS: BP 145/82
[2020-04-05 12:00] VITALS: BP 148/75
[2020-04-05 12:21] LABS: CREATININE 1.36 mg/dL (0.55-1.02); POTASSIUM 3.3 mmol/L (3.5-5.1)
--- NOTE | 2020-04-05 12:25 | NUR ---
NOTIFIED KONRAD RICO OF PATIENTS SODIUM OF 164 AND CHLORIDE OF 138.
[2020-04-05 16:00] VITALS: BP 119/69
--- NOTE | 2020-04-05 18:20 | NUR ---
CALL PLACED TO PATIENTS DAUGHTER TIM, REVIEWED PATIENTS PEG TUBE PROCEDURE SCHEDULED FOR TOMORROW, SHE DOES WANT PROCEDURE DONE, VERBAL OK GIVEN TO MYSELF AND LING Orozco RN, CONSENT COMPLETED AT THIS TIME.
--- NOTE | 2020-04-05 19:41 | NUR ---
PT AWAKE IN BED. NONVERBAL. RESPIRATIONS EASY. NO S/S OF DISTRESS NOTED. O2 IN USE VIA 3L NC. WILL MONITOR. CALL LIGHT IN REACH. BED ALARM INTACT. IVF INFUSING PER ORDER.
[2020-04-05 20:00] VITALS: BP 144/73
[2020-04-06] VITALS: BP 128/59
--- NOTE | 2020-04-06 03:00 | NUR ---
PT BATHED BY AIDES IN PREPARATION FOR PEG TUBE PLACEMENT TODAY 04/06.
[2020-04-06 07:00] LABS: HEMATOCRIT 30.4 % (37.0-47.0); MEAN CORPUSCULAR HGB 28.3 pg (27.0-31.0); MEAN CORPUSCULAR HGB CONC 28.6 g/dl (33.0-37.0); MEAN PLATELET VOLUME 9.8 fl (9.6-12.3); NUCLEATED RED BLOOD CELL 0.2 10*3/uL (0.0-0.0); NUCLEATED RED BLOOD CELL 1.5 % (0.0-0.0); PLATELET COUNT AUTOMATED 101 10*3/uL (130-400); RED BLOOD COUNT 3.07 10*6/uL (4.10-5.10); RED CELL DISTRI WIDTH 17.5 % (0-14.5); WHITE BLOOD COUNT 11.7 10*3/uL (4.8-10.8)
[2020-04-06 07:14] LABS: CREATININE 1.43 mg/dL (0.55-1.02)
--- NOTE | 2020-04-06 07:21 | NUR ---
NOTIFIED OF CRICIAL SODIUM 166 AND CHLORIDE 137.
[2020-04-06 07:24] LABS: POLYCHROMASIA SLIGHT; TOTAL CELLS COUNTED 100 #CELLS
[2020-04-06 07:25] LABS: BURR CELLS FEW; OVALOCYTES FEW; PLATELET SUFFICIENCY LOW (NORMAL); SCHISTOCYTES FEW
[2020-04-06 08:00] VITALS: BP 136/72
--- NOTE | 2020-04-06 09:21 | NUR ---
SPOKE WITH DAUGHTER FAY RE: MRI QUESTIONTARIQ. FORM COMPLETED.
--- NOTE | 2020-04-06 09:27 | NUR ---
Gerber RICO NOTIFIED OF K OF 3.0 ORDERS RECEIVED.
--- NOTE | 2020-04-06 09:52 | NUR ---
SPOKE WITH DAUGHTER FAY MACHADO FOR MIDLINE PLACEMENT
[2020-04-06 12:00] VITALS: BP 125/70
--- NOTE | 2020-04-06 13:00 | NUR ---
Gerber RICO WAX PUMPER ON UNIT, NOTIFIED IV SITE WAS LOST. MIDLINE ORDER ALREADY IN.
--- NOTE | 2020-04-06 13:24 | NUR ---
PODITARY IN TO SEE PT.
--- NOTE | 2020-04-06 13:24 | NUR ---
PT OFF UNIT FOR PEG PLACEMENT
--- NOTE | 2020-04-06 14:00 | NUR ---
PEG TO PLACED TOMORROW PER SURGERY RE; LAB VALUES.
--- NOTE | 2020-04-06 14:18 | NUR ---
Spoke with patients daughter Maisha discussing discharge plans. She mentioned that the doctors had told her she will need to go to a facility prior to going home since there is a lot of medical issues with this patient. I asked her to pick a facility and verbally listed each one. She stated she would like to have her faxed to the [facility] in [place]. Contacted [facility] and faxed referral. Patient will require another Covid test with results negative within 48 hours of discharge.
[2020-04-06 16:00] VITALS: BP 141/73
[2020-04-06 20:00] VITALS: BP 134/68
[2020-04-06 22:53] LABS: CREATININE 1.27 mg/dL (0.55-1.02)
--- NOTE | 2020-04-06 23:02 | NUR ---
NOTIFIED OF CRITICAL LAB VALUES NA 168, CL 140, K 3.0.
[2020-04-07] VITALS: BP 148/63
--- NOTE | 2020-04-07 04:14 | NUR ---
PT GRABBING AT R SIDE OF NECK WITH R HAND. RN ASKED IF PATIENT WAS IN PAIN. PT REPLIES "OKAY" AND NODS HEAD YES. RN ASKS IF SHE WANTS SOMETHING FOR PAIN. PT REPLIES "OKAY" AND NODS HEAD YES. IV DILAUDID GIVEN PER PRN ORDER. WILL MONITOR EFFECTIVENESS. CALL LIGHT IN REACH. BED ALARM INTACT.
--- NOTE | 2020-04-07 05:10 | NUR ---
EARLIER DILAUDID APPEARS EFFECTIVE. PT ASLEEP IN BED. NO LONGER GRABBING NECK. RESPIRATIONS EASY. NON-LABORED. WILL CONTINUE TO MONITOR. CALL LIGHT IN REACH. BED ALARM INTACT.
--- NOTE | 2020-04-07 07:01 | NUR ---
KONRAD RICO NP CALLED FLOOR IN REGARDS TO PATIENT SODIUM LEVEL DRAWN LAST NIGHT AT APPROXIMATELY 2200. INFORMED OF LAB RESULT. NO NEW ORDERS RECIEVED AT THIS TIME.
--- NOTE | 2020-04-07 07:55 | NUR ---
Pascual RICO STREETCAR OPERATOR SPOKE WITH DAUGHTER GLO AT LENGTH RE: PT CONDITION. ALL LABS REVIEWED WELL PLAN OF CARE. PT DAUGHTER WANTS HER TO BE COMFORTABLE, ALL ASPECTS OF CARE REVIEWED AND PT DAUGHTER WANTS HER TO BE MOTHER TO BE A DNRCC. SHE WOULD LIKE HOSPICE TO SEE HER MOTHER AGAIN. PEG/NG TUBE DISCUSSED SHE DECLINES, NO FURTHER INVASIVE CARE AT THIS TIME. ALSO DISCUSSED DISCHARGE OPTIONS. HOME VS PLACEMENT PT DAUGHTER STATES UNDERSTANDING THAT HOME WITH HOSPICE IS A POSSIBLITY.
[2020-04-07 08:00] VITALS: BP 149/56
--- NOTE | 2020-04-07 08:14 | NUR ---
Rhonda [place] stating she had a talk with patients daughter this morning and according to the recent lab results she thinks patient needs hospice consult again. Daughter agreed. Contacted [facility] again to set up a time for assessment.
[2020-04-07 12:00] VITALS: BP 140/76
--- NOTE | 2020-04-07 13:39 | NUR ---
PT SLEEPING. RESP EASY AND NONLABORED ON O2. NO DISTRESS NOTED. CALL LIGHT IN REACH. WILL MONITOR
--- NOTE | 2020-04-07 15:33 | NUR ---
DR DUNN IN TO SEE PT. NOTIFIED OF CODE STATUS CHANGE AND HOSPICE CONSULT TODAY. ORDERS RECIEIVED TO DC ABX.
[2020-04-07 16:00] VITALS: BP 132/62
--- NOTE | 2020-04-07 17:15 | NUR ---
DISCHARGE TO HOSPICE WOUND CARE PHOTOS NOT TAKEN, DAUGHTER REFUSED.
--- NOTE | 2020-04-07 17:20 | NUR ---
HOSPICE IN TO SEE PT AND FAMILY. DAUGHTER HAS ACCEPTED SERVICE. Gerber RICO ON FLOOR AND AWARE. ORDERS TO FOLLOW.
--- NOTE | 2020-04-07 17:21 | NUR ---
DISCHARGE TO HOSPICE PLACED. DAUGHTER STATES UNDERSTANDING.
== END 2020-04-07 17:21 | disposition hospice, home (50) | DRG 853 ==
LOC: ED 16:17 → EDHOLD 21:36 → 4E 21:36
PROVIDERS: Hospitalist; Internal Medicine; Nurse Practitioner; Registered Nurse; ADMIT Internal Medicine; ATTEND Internal Medicine
PROC: 0KBW0ZZ Excision of Left Foot Muscle, Open Approach (ICD-10-PCS; 2020-04-04)
PROC: 05H933Z Insertion of Infusion Device into Right Brachial Vein, Percutaneous Approach (ICD-10-PCS; principal; 2020-04-06)
DX: A41.9 Sepsis, unspecified organism (principal); L89.624 Pressure ulcer of left heel, stage 4; L89.323 Pressure ulcer of left buttock, stage 3; L89.313 Pressure ulcer of right buttock, stage 3; G93.41 Metabolic encephalopathy; J96.01 Acute respiratory failure with hypoxia; N17.0 Acute kidney failure with tubular necrosis; J69.0 Pneumonitis due to inhalation of food and vomit; J15.6 Pneumonia due to other Gram-negative bacteria; N39.0 Urinary tract infection, site not specified; E44.1 Mild protein-calorie malnutrition; I50.22 Chronic systolic (congestive) heart failure; J98.11 Atelectasis; E87.3 Alkalosis; E87.0 Hyperosmolality and hypernatremia; I13.0 Hypertensive heart and chronic kidney disease with heart failure and stage 1 through stage 4 chronic kidney disease, or unspecified chronic kidney disease; L97.529 Non-pressure chronic ulcer of other part of left foot with unspecified severity; Z20.828 Contact with and (suspected) exposure to other viral communicable diseases; Z96.653 Presence of artificial knee joint, bilateral; L89.610 Pressure ulcer of right heel, unstageable; N18.30 Chronic kidney disease, stage 3 unspecified; F03.90 Unspecified dementia, unspecified severity, without behavioral disturbance, psychotic disturbance, mood disturbance, and anxiety; K21.9 Gastro-esophageal reflux disease without esophagitis; I73.9 Peripheral vascular disease, unspecified; R65.20 Severe sepsis without septic shock; D64.9 Anemia, unspecified; D47.3 Essential (hemorrhagic) thrombocythemia; R73.9 Hyperglycemia, unspecified; E83.41 Hypermagnesemia; E78.2 Mixed hyperlipidemia; E83.39 Other disorders of phosphorus metabolism; B96.20 Unspecified Escherichia coli [E. coli] as the cause of diseases classified elsewhere; R62.7 Adult failure to thrive; R13.10 Dysphagia, unspecified; E87.6 Hypokalemia; Z88.6 Allergy status to analgesic agent; Z91.041 Radiographic dye allergy status; Z91.040 Latex allergy status; Z90.49 Acquired absence of other specified parts of digestive tract; Z90.710 Acquired absence of both cervix and uterus; Z87.891 Personal history of nicotine dependence; Z82.49 Family history of ischemic heart disease and other diseases of the circulatory system; Z83.6 Family history of other diseases of the respiratory system; Z66 Do not resuscitate; Z51.5 Encounter for palliative care; Z68.23 Body mass index [BMI] 23.0-23.9, adult

== ENCOUNTER 2020-04-07 17:41 | Inpatient (IN) | payer OTHER, MEDICARE ==
--- NOTE | 2020-04-07 17:51 | NUR ---
Time: 1749 A 84 year old FEMALE admitted to under services of RISA EDGE DO, Pt. arrived via bed from DC. Chief complaint: [facility]. USMAN GONCALVES
--- NOTE | 2020-04-07 17:58 | NUR ---
CALLED AND NOTIFIED DR ESTRADA WITH PODITARY OF PT BECOMING INPATIENT HOSPICE AND REQUEST TO REMOVE WOUND VAC PER HOSPICE. ORDERS RECEIVED.
--- NOTE | 2020-04-07 18:48 | NUR ---
WOUND VAC REMOVED PER ORDERS. DAUGHTER REFUSED WOUND PHOTO. MEDICATED WITH DILAUDID FOR PAIN. CALL LIGHT IN REACH. WILL MONITOR.
--- NOTE | 2020-04-07 19:13 | NUR ---
FAMILY AT BEDSIDE.
--- NOTE | 2020-04-07 19:46 | NUR ---
FAMILY LEFT. PT RESTING IN BED. NO S/S OF DISTRESS NOTED. WILL MONITOR CALL LIGHT IN REACH. BED ALARM INTACT.
[2020-04-07 20:00] VITALS: BP 149/62
--- NOTE | 2020-04-08 02:06 | NUR ---
PT ASLEEP IN BED. RESPIRATIONS EASY. NO S/S OF DISTRESS NOTED. WILL MONITOR. CALL LIGHT IN REACH.
--- NOTE | 2020-04-08 04:34 | NUR ---
PT ASLEEP IN BED. NO S/S OF DISTRESS NOTED. WILL MONITOR. CALL LIGHT IN REACH. BED ALARM INTACT.
--- NOTE | 2020-04-08 05:55 | NUR ---
IV DILAUDID GIVEN PER PRN ORDER. PT IS RESTLESS AND GRABBING AT R SIDE OF NECK WITH R HAND. WILL MONITOR EFFECTIVENESS. PT BATHED BY AIDES. DRESSING TO COCCYX CHANGED PREVIOUS DRESSING SOILED. WILL MONITOR. CALL LIGHT IN REACH. BED ALARM INTACT.
[2020-04-08 08:00] VITALS: BP 148/87
--- NOTE | 2020-04-08 14:14 | NUR ---
Nurse from hospice in and saw pt. Spoke with Rhonda MERRITT regarding plan of care.
[2020-04-08 15:49] VITALS: BP 141/69
[2020-04-08 20:00] VITALS: BP 133/86
[2020-04-09] VITALS: BP 125/75
--- NOTE | 2020-04-09 03:22 | NUR ---
PATIENT MOANING. DILAUDID GIVEN AT THIS TIME. WILL CHECK EFFECTIVENESS.
--- NOTE | 2020-04-09 04:22 | NUR ---
PATIENT RESTING COMFORTABLY. NO SIGNS OF DISTRESS. WILL CONTINUE TO MONTIOR.
[2020-04-09 08:00] VITALS: BP 128/70
--- NOTE | 2020-04-09 08:40 | NUR ---
Medicated with dilaudid per prn order for s/s of pain including moaning, restlessness.
--- NOTE | 2020-04-09 09:19 | NUR ---
Pt resting with eyes closed. No restless noted. Respirations easy and regular. Pain medication effective.
--- NOTE | 2020-04-09 10:31 | NUR ---
Hospice nurse in and saw pt. Recommends that pt may need some ativan. Given at this time for restlessness.
--- NOTE | 2020-04-09 11:00 | NUR ---
No longer restless. Ativan effective.
[2020-04-09 12:00] VITALS: BP 107/521
--- NOTE | 2020-04-09 15:34 | NUR ---
Pt daughter visiting. Pt moaning at times per daughter and reaching up to rt shoulder. Medicated with dilaudid iv per prn order for s/s of pain.
--- NOTE | 2020-04-09 16:15 | NUR ---
Pain medication effective. Resting without distress.
[2020-04-09 16:39] VITALS: BP 122/64
[2020-04-09 20:00] VITALS: BP 122/64
[2020-04-10] VITALS: BP 132/73
--- NOTE | 2020-04-10 07:30 | NUR ---
PT RESTING IN BED.RESPS EASY AND NON LABORED. NO S/S OF DISTRESS NOTED. WILL CONTINUE TO MONITOR. BED ALARM ON. CALL LIGHT WITHIN REACH.
[2020-04-10 08:00] VITALS: BP 138/88
[2020-04-10 09:00] VITALS: BP 94/58
--- NOTE | 2020-04-10 09:52 | NUR ---
PT MEDICATED W ATIVAN PER ORDER. PT TACHYPNEIC @ 28 RESPS PER MIN. WILL CONTINUE TO MONITOR. CALL LIGHT WITHIN REACH.
--- NOTE | 2020-04-10 09:57 | NUR ---
HOSPICE RECCOMENDING PT BE PLACED ONTO DILAUDID DRIP. DR NÚÑEZ NOTIFIED.
--- NOTE | 2020-04-10 10:00 | NUR ---
WOUND CARE COMPLETED PER PHYSICIAN ORDERS
--- NOTE | 2020-04-10 10:30 | NUR ---
PT RESTING. RESPS EASY AND NON LABORED. NO S/S OF DISTRESS NOTED. CALL LIGHT WITHIN REACH.
--- NOTE | 2020-04-10 13:00 | NUR ---
PASTORAL CARE INTO SEE PT
--- NOTE | 2020-04-10 13:21 | NUR ---
RESPS 26, SLIGHTLY LABORED. MEDICATED PER ORDER. WILL MONITOR. CALL LIGHT WITHIN REACH
--- NOTE | 2020-04-10 14:15 | NUR ---
MEDICATION APPEARS EFFECTIVE. PT SLEEPING W EYES CLOSED. RESPS EASY AND NON LABORED. CALL LIGHT WITHIN REACH. BED ALARM ON.
[2020-04-10 16:00] VITALS: BP 87/45
--- NOTE | 2020-04-10 16:19 | NUR ---
PT MEDICATED W PRN ATIVAN FOR RESTLESSNESS. WILL CONTINUE TO MONITOR. RESPS EASY AND NON LABORED. CALL LIGHT WITHIN REACH.
--- NOTE | 2020-04-10 16:28 | NUR ---
FAMILY AT BEDSIDE
--- NOTE | 2020-04-10 17:33 | NUR ---
PT MEDICATED W PRN DILAUDID FOR S/S DISCOMFORT. WILL CONTINUE TO MONITOR. CALL LIGHT WITHIN REACH. RESPS EASY AND NON LABORED.
--- NOTE | 2020-04-10 18:00 | NUR ---
PT RESTING COMFORTABLY W EYES SHUT. RESPS EASY AND NON LABORED. CALL LIGHT WITHIN REACH.
[2020-04-10 20:00] VITALS: BP 111/50
--- NOTE | 2020-04-10 20:00 | NUR ---
PATIENT RESTING COMFORTABLY. NO SIGNS OF DISTRESS. WILL CONTINUE TO MONITOR.
--- NOTE | 2020-04-10 20:30 | NUR ---
FAMILY AT BEDSIDE.
[2020-04-11] VITALS: BP 86/40
--- NOTE | 2020-04-11 01:13 | NUR ---
PATIENT SEEMS TO BE A BIT RESTLESS AND BREATHING QUICKER. MEDICATED WITH DILAUDID. WILL CHECK EFFECTIVENESS.
--- NOTE | 2020-04-11 02:13 | NUR ---
DILAUDID SEEMS TO BE EFFECTIVE. PATIENT RESTING COMFORTABLY. WILL CONTINUE TO MONITOR.
--- NOTE | 2020-04-11 05:53 | NUR ---
PATIENT MEDICATED WITH PRN ATIVAN AT THIS TIME FOR AGITATION. WILL CHECK EFFECTIVENESS.
[2020-04-11 08:00] VITALS: BP 131/70
--- NOTE | 2020-04-11 10:03 | NUR ---
HOPSICE NURSE IN TO SEE PT.
[2020-04-11 12:00] VITALS: BP 133/67
--- NOTE | 2020-04-11 12:20 | NUR ---
PT NOTED TO BE RESTLESS. MEDICATED WITH DILAUDID IV FOR PAIN. WILL MONITOR
--- NOTE | 2020-04-11 13:00 | NUR ---
MEDICATION EFFECTIVE. PT RESTING, WILL MONITOR
[2020-04-11 16:00] VITALS: BP 93/42
--- NOTE | 2020-04-11 19:00 | NUR ---
PT RESTING IN BED AT THIS TIME. RESPS ARE EASY AND NONLABORED. NO S/S OF DISTRESS NOTED. PT REPOSITIONED FOR COMFORT, MOUTH CARE PROVIDED. WILL CONTINUE TO MONITOR.
[2020-04-11 20:00] VITALS: BP 111/57
--- NOTE | 2020-04-11 21:27 | NUR ---
24 HR CHART CHECK COMPLETE.
[2020-04-12] VITALS: BP 117/74
--- NOTE | 2020-04-12 03:20 | NUR ---
PT'S VERIFIED BY THIS NURSE AND ED GUIDO.
--- NOTE | 2020-04-12 03:24 | NUR ---
DR LOO NOTIFIED OF PATIENTS
--- NOTE | 2020-04-12 03:48 | NUR ---
ONE CALL FOR [facility] REFERENCE NUMBER: [id number] ASSIGNMENT DESK EDITOR: [email or web address]
== END 2020-04-12 03:20 | disposition expired | DRG 871 ==
LOC: 4E 17:41
PROVIDERS: ADMIT Internal Medicine; ATTEND Internal Medicine
DX: A41.9 Sepsis, unspecified organism (principal); G93.41 Metabolic encephalopathy; J96.01 Acute respiratory failure with hypoxia; N17.0 Acute kidney failure with tubular necrosis; J18.9 Pneumonia, unspecified organism; N30.01 Acute cystitis with hematuria; Z66 Do not resuscitate; L97.529 Non-pressure chronic ulcer of other part of left foot with unspecified severity; Z51.5 Encounter for palliative care; D64.9 Anemia, unspecified; Z20.828 Contact with and (suspected) exposure to other viral communicable diseases; E87.8 Other disorders of electrolyte and fluid balance, not elsewhere classified; R65.20 Severe sepsis without septic shock; N18.30 Chronic kidney disease, stage 3 unspecified; I12.9 Hypertensive chronic kidney disease with stage 1 through stage 4 chronic kidney disease, or unspecified chronic kidney disease; I73.9 Peripheral vascular disease, unspecified; K21.9 Gastro-esophageal reflux disease without esophagitis; Z90.49 Acquired absence of other specified parts of digestive tract; Z90.710 Acquired absence of both cervix and uterus; Z87.891 Personal history of nicotine dependence